=== PATIENT | male | born 1980 | race Caucasian/White ===

== ENCOUNTER 2019-01-16 15:17 | Inpatient (IN) | payer OTHER ==
[~2019-01-16] VITALS: Ht 175.3 cm; Wt 72.0 kg
[2019-01-16] MEDS ORDERED: ONDANSETRON 4 MG INJ IV STA (15:26)
[2019-01-16] MEDS ORDERED: SOD CHLORIDE 0.9% 1,000 ML IV STA (15:26)
[2019-01-16] MEDS ORDERED: HYDROmorphONE 1 MG/ML SYG IV STA (15:26)
[2019-01-16] MEDS: DIPHTH/TET/ACEL PERTUSS (ADULT) 0.5 ML VIAL IM* ONE ×2 (15:49→15:54)
--- NOTE | 2019-01-16 15:54 | ERD ---
ER Documentation Chief Complaint Chief Complaint R. TOE PAIN S/P CRUSH INJ HPI 38-year-old man brought in by EMS from home after a 14 inch high 12 foot long wooden beam fell onto his right big toe when he tried to move it. Episode o ccurred about half an hour prior to arrival, after the being fell onto his toe he could not ambulate developed pain, swelling, bleeding immediately. There was no other injury or trauma, no LOC, patient states tetanus immunization performed 3 years ago. Patient transported here by EMS without further complications ROS All systems reviewed and are negative except as per history of present illness. Medications Home Meds No Active Prescriptions or Reported Meds Allergies Allergies: Coded Allergies: No Known Allergy (Unverified , 01/16/19) PMhx/Soc Medical and Surgical Hx: pt denies Medical Hx History of Surgery: Yes (ELBOW DEBRIDEMENT) Anesthesia Reaction: No Hx Neurological Disorder: No Hx Respiratory Disorders: No Hx Cardiac Disorders: No Hx Psychiatric Problems: No Hx Miscellaneous Medical Probl: No Hx Alcohol Use: No Hx Substance Use: No Hx Tobacco Use: No Smoking Status: Never smoker FmHx Family History: No diabetes Physical Exam Vitals Vital Signs Date Temp Pulse Resp B/P (MAP) Pulse Ox O2 O2 Flow FiO2 Time Delivery Rate 01/16/19 99.0 72 16 122/78 100 15:22 (93) Physical Exam GENERAL: Well-developed, well-nourished, moderate discomfort, afebrile HEENT: Moist mucous membranes, pink conjunctiva, no cervical spine tenderness or step-off deformities, no goiter, no jaundice or icterus, extraocular movements intact without pain. No submandibular induration, and no pharyngeal erythema NEURO: Alert and oriented 3, cranial nerves II through XII intact bilaterally, pupils equal round reactive to light, no focal deficits or facial asymmetry, sensation intact distally Strength 5/5 in upper and lower extremities bilaterally CARDIAC: Regular rate and rhythm, no murmurs rubs or gallops LUNGS: Clear bilaterally no wheezing crackles or stridor ABDOMEN: Soft nontender, no guarding, no rigidity, no rebound, no psoas sign no obturator sign. Normoactive bowel sounds SKIN: Warm and dry to touch, crush injury to the right big toe with complex toe laceration and large contusion hematoma. EXTREMITIES: No clubbing cyanosis or edema, calves are bilaterally symmetrical, no Homans sign, no popliteal cord sign. Distal pulses equal and bilateral. Crush injury to the right big toe with active bleeding and near complete toenail avulsion with subungual hematoma. Patient has no tenderness over the navicular bone or other parts of the foot or ankle PSYCH: Normal affect without agitation or irritability Result Diagram: 01/16/19 1542 01/16/19 1542 Results 24 hrs Laboratory Tests Test 01/16/19 15:42 White Blood Count 5.8 10^3/ul Red Blood Count 4.28 10^6/ul Hemoglobin 12.9 g/dl Hematocrit 39.0 % Mean Corpuscular Volume 91.1 fl Mean Corpuscular Hemoglobin 30.1 pg Mean Corpuscular Hemoglobin Concent 33.1 g/dl Red Cell Distribution Width 12.8 % Platelet Count 171 10^3/UL Mean Platelet Volume 10.5 fl Immature Granulocytes % 0.200 % Neutrophils % 56.2 % Lymphocytes % 29.7 % Monocytes % 10.5 % Eosinophils % 2.9 % Basophils % 0.5 % Nucleated Red Blood Cells % 0.0 /100WBC Immature Granulocytes # 0.010 10^3/ul Neutrophils # 3.3 10^3/ul Lymphocytes # 1.7 10^3/ul Monocytes # 0.6 10^3/ul Eosinophils # 0.2 10^3/ul Basophils # 0.0 10^3/ul Nucleated Red Blood Cells # 0.0 10^3/ul Sodium Level 142 mmol/L Potassium Level 3.1 mmol/L Chloride Level 114 mmol/L Carbon Dioxide Level 22 mmol/L Anion Gap 6 Blood Urea Nitrogen 13 mg/dl Creatinine 0.60 mg/dl Est Glomerular Filtrat Rate mL/min > 60 mL/min Glucose Level 80 mg/dl Calcium Level 7.7 mg/dl Current Medications Medications Dose Sig/Monique Start Time Status Last (Trade) Ordered Route PRN Stop Time Admin Dose Reason Admin Sodium 1,000 ml @ Q1H STAT 01/16/19 DC 01/16/19 Chloride 1,000 mls/hr IV 15:26 15:40 01/16/19 16:25 1 mg ONCE STAT 01/16/19 DC 01/16/19 Hydromorphone IV 15:26 15:40 HCl 01/16/19 15:28 (Dilaudid) Ondansetron 4 mg ONCE STAT 01/16/19 DC 01/16/19 HCl (Zofran IV 15:26 15:40 Inj) 01/16/19 15:28 Cefazolin 50 ml @ ONCE IVPB 01/16/19 DC 01/16/19 Sodium 100 mls/hr 16:00 15:49 01/16/19 16:29 Diphtheria/ 0.5 ml ONCE ONCE 01/16/19 DC Tetanus/Acell IM* 16:00 Pertussis 01/16/19 16:01 (Adacel) Vancomycin VANCOMYCIN PER 01/16/19 UNV HCl (Vanco PER PHARMACY PROTOCOL XX 16:30 Iv Per Pharmacy) Piperacillin 100 ml @ Q6 IVPB 01/16/19 Sod/ 200 mls/hr 18:00 Tazobactam Sod 1,000 ml @ Q10H IV 01/16/19 Dextrose/Sodi 100 mls/hr 16:25 um Chloride IV Flush 3 ml PER 01/16/19 (NS 3 ml) PROTOCOL IV 16:30 Ondansetron 4 mg Q6H PRN 01/16/19 HCl (Zofran IV 16:30 Inj) NAUSEA/VOMITI NG 650 mg Q6H PRN 01/16/19 Acetaminophen PO .PAIN 1-3 16:30 (Tylenol OR TEMP Tab) 1 tab Q6H PRN 01/16/19 Acetaminophen PO .PAIN 4-6 16:30 / Hydrocodone Bitart ([place] (5/325)) Morphine 2 mg Q4H PRN 01/16/19 Sulfate IV .PAIN 16:30 (morphine) 7-10 40 mg DAILY@06 01/17/19 DC Pantoprazole IV 06:00 (Protonix 01/17/19 06:00 Iv) Potassium 100 ml @ Q2H IVPB 01/16/19 Chloride 50 mls/hr 16:30 01/16/19 22:29 2 mg ONCE STAT 01/16/19 DC 01/16/19 Hydromorphone IV 16:31 16:48 HCl 01/16/19 16:32 (Dilaudid) Albuterol/ 3 ml ONCE STAT 01/16/19 UNV Ipratropium HHN 16:40 (Duoneb) 01/16/19 16:41 Albuterol/ 3 ml Q6HWA RESP 01/16/19 UNV Ipratropium THERAPY HHN 20:00 (Duoneb) Albuterol/ 3 ml Q2H RESP 01/16/19 UNV Ipratropium THERAPY PRN 17:00 (Duoneb) HHN shortness of breath Procedures/MDM IV line was established patient was placed on director of cardiac cath lab rhythm strip revealed a sinus rhythm at about 70 bpm with upright P and T waves. Patient was afebrile I administered 1 L normal saline IV, hydromorphone 2 mg IV, Zofran 4 mg IV, cefazolin 1 g IV EKG performed, read by me: 65 bpm, normal sinus rhythm, normal axis, no acute ST segment changes, narrow QRS complex, with good R-wave progression in precordial leads. Three-view x-ray of the right foot performed, read by me there is a displaced comminuted fracture of the right first distal phalanx, no other fracture dislocation noted. CBC and electrolytes were within normal limits, coagulation profile has been ordered results are pending I will follow-up. Right toe was inspected and irrigated by me copiously with normal saline, bleeding stopped and no foreign bodies or debris was noted. Toe was wrapped with sterile gauze for comfort and supportive measures pending surgery. Trauma critical Care: Time: 41 minutes, this was time separate from other billable procedures. Treatments/Evaluations: Close monitoring and treatment of unstable vital signs, cardiorespiratory, and neurologic status, while maintaining tight balance of fluid, respiratory, and cardiac interventions. Patient will be admitted to [facility] and admitting team contacted podiatry and patient will be kept n.p.o. until ORIF later this evening Departure Diagnosis: Primary Impression: Open fracture of distal phalanx of great toe Encounter type: initial encounter Fracture alignment: displaced Laterality: right Qualified Codes: S92.421B - Displaced fracture of distal phalanx of right great toe, initial encounter for open fracture Additional Impression: Traumatic avulsion of nail plate of toe Encounter type: initial encounter Qualified Codes: S91.209A - Unspecified open wound of unspecified toe(s) with damage to nail, initial encounter Condition: CARLINE Slade MD January 16, 2019 15:54
[2019-01-16] MEDS ORDERED: CEFAZOLIN 1 GM/50 ML (PMX) 50 ML IVPB SCH (16:00)
[2019-01-16] MEDS ORDERED: ACETAMINOPHEN 325 MG TAB PO PRN (16:30)
[2019-01-16] MEDS ORDERED: VANCOMYCIN IV PER PHARMACY XX SCH (16:30)
[2019-01-16] MEDS ORDERED: ONDANSETRON 4 MG INJ IV PRN (16:30)
[2019-01-16] MEDS ORDERED: HYDROCODONE/APAP (5/325) TAB PO PRN (16:30)
[2019-01-16] MEDS ORDERED: NACL 0.9% 3 ML SYG IV SCH (16:30)
[2019-01-16] MEDS ORDERED: HYDROmorphONE 2 MG/ML SYG IV STA (16:31)
[2019-01-16] MEDS ORDERED: ALBUTEROL/IPRATROPIUM (NEB) 3 ML AMP HHN STA (16:40)
--- NOTE | 2019-01-16 16:56 | HP ---
Date/Time of Note Date/Time of Note DATE: 01/16/19 TIME: 16:56 Assessment/Plan VTE Prophylaxis Pharmacological prophylaxis: other Lines/Catheters IV Catheter Type (from Nrsg): Saline Lock Assessment/Plan Hospital Course Patient is a male with no significant past medical history who presents to [facility] after he was moving some beams around his house and one dropped on his right toe. Patient currently states other than pain in his right toe he feels well with no other significant complaints. Patient has not seen a doctor in quite some time however does occasionally see a doctor and get routine blood work. Patient family history does not have any heart attack or CVA however his father does have diabetes mellitus. Patient has no allergies to medications and also does not take any medications. Patient occasionally smokes but is not a daily smoker and states he does not drink. Patient denies chest pain, shortness of breath, headache, nausea, vomiting, abdominal pain, leg pain except for right foot toe pain. Objective Physical exam General: Patient is laying in bed and answers questions appropriately Mentation: Patient is alert and oriented 4, Head: Normocephalic atraumatic Eyes: EOMI, pupils reactive to light Neck: Supple, nontender, midline Respiratory: left has very mild wheeze, right clear to auscultation Cardiovascular: regular rate, no obvious murmurs Gastrointestinal: non-tender to palpation, bowel sounds heard. Neurological: Moves all extremities spontaneously Skin: Right big toe, bloody, laceration Assessment and plan Open, markedly comminuted, displaced first distal third phalangeal fracture, fairly severe and large laceration -Broad-spectrum IV antibiotic, infectious disease, Dr. Hung has been consulted to help with postoperative antibiotic management for prevention of osteomyelitis for open fracture -Podiatry, Dr. Mcgraw/Gurwinder consulted, patient on schedule for surgery ton ight -Pain control -N.p.o. -chest x-ray, coag panel, EKG in preparation for surgery Light wheezing on auscultation -No shortness of breath whatsoever -Chest x-ray -DuoNeb's -Patient is occasional smoker Disposition -Patient n.p.o. for surgery tonight -IV fluid, pain control, ID recommendations appreciated post surgery, patient will likely need IV antibiotics for a few days after. Result Diagram: 01/16/19 1542 01/16/19 1542 Results 24hrs Laboratory Tests Test 01/16/19 15:42 White Blood Count 5.8 Red Blood Count 4.28 L Hemoglobin 12.9 L Hematocrit 39.0 L Mean Corpuscular Volume 91.1 Mean Corpuscular Hemoglobin 30.1 Mean Corpuscular Hemoglobin Concent 33.1 Red Cell Distribution Width 12.8 Platelet Count 171 Mean Platelet Volume 10.5 H Immature Granulocytes % 0.200 Neutrophils % 56.2 Lymphocytes % 29.7 Monocytes % 10.5 Eosinophils % 2.9 Basophils % 0.5 Nucleated Red Blood Cells % 0.0 Immature Granulocytes # 0.010 Neutrophils # 3.3 Lymphocytes # 1.7 Monocytes # 0.6 Eosinophils # 0.2 Basophils # 0.0 Nucleated Red Blood Cells # 0.0 Sodium Level 142 Potassium Level 3.1 L Chloride Level 114 H Carbon Dioxide Level 22 Anion Gap 6 Blood Urea Nitrogen 13 Creatinine 0.60 L Est Glomerular Filtrat Rate mL/min > 60 Glucose Level 80 Calcium Level 7.7 L HPI/ROS Admit Date/Time Admit Date/Time PMH/Family/Social Past Medical History Medications Current Medications Vancomycin HCl (Vanco Iv Per Pharmacy) VANCOMYCIN PER PHARMACY PER PROTOCOL XX ; Start 01/16/19 at 16:30; Status UNV Piperacillin Sod/ Tazobactam Sod 100 ml @ 200 mls/hr Q6 IVPB ; Start 01/16/19 at 18:00 Dextrose/Sodium Chloride 1,000 ml @ 100 mls/hr Q10H IV ; Start 01/16/19 at 16:25 IV Flush (NS 3 ml) 3 ml PER PROTOCOL IV ; Start 01/16/19 at 16:30 Ondansetron HCl (Zofran Inj) 4 mg Q6H PRN IV NAUSEA/VOMITING; Start 01/16/19 at 16:30 Acetaminophen (Tylenol Tab) 650 mg Q6H PRN PO .PAIN 1-3 OR TEMP; Start 01/16/19 at 16:30 Acetaminophen/ Hydrocodone Bitart ([place] (5/325)) 1 tab Q6H PRN PO .PAIN 4-6; Start 01/16/19 at 16:30 Morphine Sulfate (morphine) 2 mg Q4H PRN IV .PAIN 7-10; Start 01/16/19 at 16:30 Potassium Chloride 100 ml @ 50 mls/hr Q2H IVPB ; Start 01/16/19 at 16:30; Stop 01/16/19 at 22:29 Albuterol/ Ipratropium (Duoneb) 3 ml ONCE STAT HHN ; Start 01/16/19 at 16:40; Stop 01/16/19 at 16:41; Status UNV Albuterol/ Ipratropium (Duoneb) 3 ml Q6HWA RESP THERAPY HHN ; Start 01/16/19 at 20:00; Status UNV Albuterol/ Ipratropium (Duoneb) 3 ml Q2H RESP THERAPY PRN HHN shortness of breath; Start 01/16/19 at 17:00; Status UNV Famotidine (Pepcid Iv) 20 mg Q12H IV ; Start 01/16/19 at 17:00 Coded Allergies: No Known Allergy (Unverified , 01/16/19) Social History Smoking Status: Never smoker Exam/Review of Systems Vital Signs Vitals Vital Signs Date Temp Pulse Resp B/P (MAP) Pulse Ox O2 O2 Flow FiO2 Time Delivery Rate 01/16/19 99.0 72 16 122/78 100 15:22 (93) CARLINE CUNNINGHAM January 16, 2019 16:56
[2019-01-16] MEDS ORDERED: ALBUTEROL/IPRATROPIUM (NEB) 3 ML AMP HHN PRN (17:00)
[2019-01-16] MEDS: DEXTROSE 5%-0.45% NACL 1,000 ML IV SCH (17:00)
[2019-01-16] MEDS: POTASSIUM CHLORIDE 100 ML IVPB SCH ×2 (17:03→20:14)
[2019-01-16] MEDS: FAMOTIDINE 20 MG INJ IV SCH (17:39)
[2019-01-16] MEDS ORDERED: DIPHTH/TET/ACEL PERTUSS (ADULT) 0.5 ML VIAL IM* ONE (18:00)
[2019-01-16] MEDS ORDERED: CALCIUM GLUCONATE 10% 1 GM in DEXTROSE 5% 100 ML IVPB ONE (18:30)
[2019-01-16] MEDS: PIPER-TAZO 3.375 GM IV (PMX) 100 ML IVPB SCH (19:07)
[2019-01-16] MEDS: ALBUTEROL/IPRATROPIUM (NEB) 3 ML AMP HHN SCH (19:27)
[2019-01-16] MEDS ORDERED: VANCOMYCIN HCL 1.5 GM in SOD CHLORIDE 0.9% 250 ML IVPB ONE (20:00)
--- NOTE | 2019-01-16 22:08 | CONS ---
DATE OF ADMISSION: 01/16/2019 DATE OF CONSULTATION: 01/16/2019 REASON FOR CONSULTATION: Right foot pain. HISTORY OF PRESENT ILLNESS: This is a 38-year-old gentleman, who had an injury at home, dropping a heavy steel metal bar, which resulted in a compression impaction injury of the right great toe. Currently, wrapped and hemostasis achieved, but did have a significant amount of bleeding, currently stable. Also had a radiographs, which revealed a comminuted displaced first distal phalangeal fracture. The patient's pain is currently under control. PAST MEDICAL HISTORY: Illnesses: None. PAST SURGICAL HISTORY: Right arm incision and drainage. ALLERGIES: NONE. MEDICATIONS: Includes vancomycin and Zosyn. Tetanus prophylaxis. PHYSICAL EXAMINATION: VITAL SIGNS: Temperature is 99, pulse is 78, respiratory rate 20, blood pressure is 120/68, pulse ox is 99 on room air. GENERAL: The patient is alert, oriented, in no acute distress. HEAD: Normocephalic, atraumatic. Trachea is midline. EXTREMITIES: Right foot hallux with bloody dressing. No signs of active bleeding. There is a contusion laceration of the great toe. There are palpable pedal pulses. X-rays reveal markedly comminuted displaced first distal phalangeal fracture. Chest x-ray: No acute cardiopulmonary disease. LABORATORIES: CBC 5.8, hemoglobin 12.9, hematocrit 39, platelets 171. Sodium 142, potassium 3.1, chloride 114, BUN 13, creatinine 0.6, albumin is 3.4. ASSESSMENT: 1. Right foot hallux open fracture of distal phalanx. 2. Crush injury with soft tissue damage of undetermined severity. 3. History of tobacco use. PLAN: The patient seen in the emergency room. Recommend open lavage and removal of small osseous fragments. They are not amenable to internal fixation. Also, we will likely have an open wound, which will require wound care and will give further recommendations following operative exploration, debridement of devitalized tissue. We will further coordinate with the operating room. Reviewed the imaging studies with the patient and all questions were answered to his satisfaction. The patient was also seen with my partner and had explained the procedure recovery process in [facility]. Dictated By: JUAN CARLOS RICH/VIVEK Conf#: [id number] DID#: [id number] CC: CARLINE CUNNINGHAM MD;*EndCC* MTDD
[2019-01-16] MEDS: morphine 2 MG INJ IV PRN (22:27)
[2019-01-16 23:08] VITALS: Ht 175.3 cm; Wt 72.0 kg
[2019-01-16 23:09] VITALS: BP 120/65; PULSE 70; RESP 18
[2019-01-17] VITALS (20 sets, daily range): BP systolic 115–133; BP diastolic 64–92; PULSE 64–79; RESP 11–22
[2019-01-17] MEDS: POTASSIUM CHLORIDE 100 ML IVPB SCH (00:12)
[2019-01-17] MEDS: PIPER-TAZO 3.375 GM IV (PMX) 100 ML IVPB SCH ×4 (00:14→17:33)
[2019-01-17] MEDS: DEXTROSE 5%-0.45% NACL 1,000 ML IV SCH ×2 (02:20→05:38)
[2019-01-17] MEDS: VANCOMYCIN 1 GM 250 ML IVPB SCH ×2 (04:18→14:50)
[2019-01-17] MEDS: FAMOTIDINE 20 MG INJ IV SCH ×2 (04:39→17:33)
[2019-01-17] MEDS: morphine 2 MG INJ IV PRN ×3 (04:45→22:35)
[2019-01-17] MEDS ORDERED: PANTOPRAZOLE 40 MG INJ IV SCH (06:00)
[2019-01-17] MEDS ORDERED: CEFAZOLIN 1 GM INJ ONE (07:00)
[2019-01-17] MEDS ORDERED: SEVOFLURANE 15 MIN ONE ×2 (07:00)
[2019-01-17] MEDS: ALBUTEROL/IPRATROPIUM (NEB) 3 ML AMP HHN SCH ×3 (08:00→20:00)
--- NOTE | 2019-01-17 09:14 | PN ---
Date/Time of Note Date/Time of Note DATE: 01/17/19 TIME: 09:14 Assessment/Plan VTE Prophylaxis SCD applied (from Nsg): Yes Pharmacological prophylaxis: LMWH Lines/Catheters IV Catheter Type (from Nrsg): Peripheral IV Assessment/Plan Hospital Course SUBJECTIVE: Continues to have pain in the left foot. OBJECTIVE: Physical Exam General: Adequately build 38 year-old male lying in bed in no apparent distress. HEENT: Normocephalic, atraumatic. Eyes: Anicteric sclerae, conjunctivae clear. ENT: Nasal septum midline, oral mucosa moist. Neck supple, no JVD noticed. Respiratory: Bilaterally clear breath sounds. No use of accessory muscles of respiration. No adventitious breath sounds. Cardiovascular: S1, S2 heard. Regular rate and rhythm. Abdomen: Soft, nontender, and nondistended. Bowel sounds positive in all 4 quadrants. Genitourinary: Deferred. Extremities: No cyanosis, no clubbing, no edema. Left foot dressing. Neurologic: Cranial nerves II through XII grossly intact. The patient is awake, alert, and oriented. Skin: Normal skin turgor. No skin rashes. Labs & Vitals per chart ASSESSMENT & PLAN 38-year-old male with no significant past medical history who had injury to his right toe after he dropped a heavy steel metal bar with imaging showing markedly comminuted displaced first distal phalangeal fracture, who was admitted to inpatient setting for further treatment and evaluation. 1. Right foot hallux open fracture of the distal phalanx. -Status post tetanus immunoglobulin. -Continue antimicrobials. -Being followed by podiatry. -Continue local wound care. -Await surgical intervention. 2. Normocytic, normochromic anemia. -Etiology unclear. -Monitor H&H closely. 3. Nicotine use. -Cessation advised. 4. Fluids, electrolytes, and nutrition. -Regular diet. 5. DVT prophylaxis. -Subcutaneous Lovenox. 6. Plan. -Continue pain control. -Continue local wound care and antimicrobials. -Await further podiatry recommendations/interventions. The patient was seen in collaboration with Dr. Pedro. Result Diagram: 01/17/19 0448 01/17/19 0448 Results 24hrs Laboratory Tests Test 01/16/19 15:42 01/17/19 04:48 White Blood Count 5.8 4.8 Red Blood Count 4.28 L 3.71 L Hemoglobin 12.9 L 11.3 L Hematocrit 39.0 L 34.7 L Mean Corpuscular Volume 91.1 93.5 Mean Corpuscular Hemoglobin 30.1 30.5 Mean Corpuscular Hemoglobin Concent 33.1 32.6 Red Cell Distribution Width 12.8 12.9 Platelet Count 171 138 L Mean Platelet Volume 10.5 H 11.0 H Immature Granulocytes % 0.200 0.000 L Neutrophils % 56.2 49.2 Lymphocytes % 29.7 35.4 Monocytes % 10.5 11.9 H Eosinophils % 2.9 3.3 Basophils % 0.5 0.2 Nucleated Red Blood Cells % 0.0 0.0 Immature Granulocytes # 0.010 0.000 Neutrophils # 3.3 2.4 Lymphocytes # 1.7 1.7 Monocytes # 0.6 0.6 Eosinophils # 0.2 0.2 Basophils # 0.0 0.0 Nucleated Red Blood Cells # 0.0 0.0 Prothrombin Time 13.1 Prothrombin Time Ratio 1.0 INR International Normalized Ratio 0.98 Activated Partial Thromboplast Time 26.1 Thrombin Time 15.5 Sodium Level 142 141 Potassium Level 3.1 L 4.2 Chloride Level 114 H 112 H Carbon Dioxide Level 22 24 Anion Gap 6 5 Blood Urea Nitrogen 13 10 Creatinine 0.60 L 0.82 Est Glomerular Filtrat Rate mL/min > 60 > 60 Glucose Level 80 91 Calcium Level 7.7 L 9.0 Total Bilirubin 0.4 0.3 Direct Bilirubin 0.00 0.00 Indirect Bilirubin 0.4 0.3 Aspartate Amino Transf (AST/SGOT) 17 17 Alanine Aminotransferase (ALT/SGPT) 38 34 Alkaline Phosphatase 64 59 Total Protein 5.8 L 6.1 Albumin 3.4 3.4 Hemoglobin A1c 5.2 Magnesium Level 2.2 Globulin 2.70 Albumin/Globulin Ratio 1.25 Exam/Review of Systems Exam Vitals Vital Signs Date Temp Pulse Resp B/P (MAP) Pulse Ox O2 O2 Flow FiO2 Time Delivery Rate 01/17/19 17 118/74 96 02:01 (89) 01/16/19 98.0 70 Room Air 23:09 01/16/19 21 19:27 Intake and Output 01/16/19 01/16/19 01/17/19 1515:00 23:00 07:00 IntakeIntake Total 300 ml 2000 ml OutputOutput Total 500 ml BalanceBalance 300 ml 1500 ml Results Results 24hrs Laboratory Tests Test 01/16/19 15:42 01/17/19 04:48 White Blood Count 5.8 4.8 Red Blood Count 4.28 L 3.71 L Hemoglobin 12.9 L 11.3 L Hematocrit 39.0 L 34.7 L Mean Corpuscular Volume 91.1 93.5 Mean Corpuscular Hemoglobin 30.1 30.5 Mean Corpuscular Hemoglobin Concent 33.1 32.6 Red Cell Distribution Width 12.8 12.9 Platelet Count 171 138 L Mean Platelet Volume 10.5 H 11.0 H Immature Granulocytes % 0.200 0.000 L Neutrophils % 56.2 49.2 Lymphocytes % 29.7 35.4 Monocytes % 10.5 11.9 H Eosinophils % 2.9 3.3 Basophils % 0.5 0.2 Nucleated Red Blood Cells % 0.0 0.0 Immature Granulocytes # 0.010 0.000 Neutrophils # 3.3 2.4 Lymphocytes # 1.7 1.7 Monocytes # 0.6 0.6 Eosinophils # 0.2 0.2 Basophils # 0.0 0.0 Nucleated Red Blood Cells # 0.0 0.0 Prothrombin Time 13.1 Prothrombin Time Ratio 1.0 INR International Normalized Ratio 0.98 Activated Partial Thromboplast Time 26.1 Thrombin Time 15.5 Sodium Level 142 141 Potassium Level 3.1 L 4.2 Chloride Level 114 H 112 H Carbon Dioxide Level 22 24 Anion Gap 6 5 Blood Urea Nitrogen 13 10 Creatinine 0.60 L 0.82 Est Glomerular Filtrat Rate mL/min > 60 > 60 Glucose Level 80 91 Calcium Level 7.7 L 9.0 Total Bilirubin 0.4 0.3 Direct Bilirubin 0.00 0.00 Indirect Bilirubin 0.4 0.3 Aspartate Amino Transf (AST/SGOT) 17 17 Alanine Aminotransferase (ALT/SGPT) 38 34 Alkaline Phosphatase 64 59 Total Protein 5.8 L 6.1 Albumin 3.4 3.4 Hemoglobin A1c 5.2 Magnesium Level 2.2 Globulin 2.70 Albumin/Globulin Ratio 1.25 Medications Medication Current Medications Vancomycin HCl (Vanco Iv Per Pharmacy) VANCOMYCIN PER PHARMACY PER PROTOCOL XX ; Start 01/16/19 at 16:30 Piperacillin Sod/ Tazobactam Sod 100 ml @ 200 mls/hr Q6 IVPB Last administered on 01/17/19 05:38; Admin Dose 200 MLS/HR; Start 01/16/19 at 18:00 Dextrose/Sodium Chloride 1,000 ml @ 100 mls/hr Q10H IV Last administered on 01/17/19 05:38; Admin Dose 100 MLS/HR; Start 01/16/19 at 16:25 IV Flush (NS 3 ml) 3 ml PER PROTOCOL IV ; Start 01/16/19 at 16:30 Ondansetron HCl (Zofran Inj) 4 mg Q6H PRN IV NAUSEA/VOMITING; Start 01/16/19 at 16:30 Acetaminophen (Tylenol Tab) 650 mg Q6H PRN PO .PAIN 1-3 OR TEMP; Start 01/16/19 at 16:30 Acetaminophen/ Hydrocodone Bitart ([place] (5/325)) 1 tab Q6H PRN PO .PAIN 4-6; Start 01/16/19 at 16:30 Morphine Sulfate (morphine) 2 mg Q4H PRN IV .PAIN 7-10 Last administered on 01/17/19 08:51; Admin Dose 2 MG; Start 01/16/19 at 16:30 Albuterol/ Ipratropium (Duoneb) 3 ml Q6HWA RESP THERAPY HHN Last administered on 01/16/19 19:27; Admin Dose 3 ML; Start 01/16/19 at 20:00 Albuterol/ Ipratropium (Duoneb) 3 ml Q2H RESP THERAPY PRN HHN shortness of breath; Start 01/16/19 at 17:00 Famotidine (Pepcid Iv) 20 mg Q12H IV Last administered on 01/17/19 04:39; Admin Dose 20 MG; Start 01/16/19 at 17:00 Vancomycin HCl 250 ml @ 125 mls/hr Q8H IVPB Last administered on 01/17/19 04:18; Admin Dose 125 MLS/HR; Start 01/17/19 at 04:00 KIERA EUBANKS NP January 17, 2019 09:14
--- NOTE | 2019-01-17 11:40 | HPN ---
Date/Time of Note Date/Time of Note DATE: 01/17/19 TIME: 11:40 Interval H&P Admission Note Pt. seen H&P reviewed: No system changes HOLLY BENÍTEZ DPM January 17, 2019 11:40
[2019-01-17] MEDS ORDERED: LIDOCAINE 1% (MPF) 30 ML INJ ONE (12:38)
[2019-01-17] MEDS ORDERED: BUPIVACAINE 0.5% (SDV) 30 ML INJ ONE (12:38)
--- NOTE | 2019-01-17 13:14 | PREAC ---
Date/Time of Note Date/Time of Note DATE: 01/17/19 TIME: 13:13 Anesthesia Eval and Record Evaluation Time Pre-Procedure Interview DATE: 01/17/19 TIME: 13:13 Age 38 Sex male NPO: 8 hrs Preoperative diagnosis right great toe crush injury Planned procedure right foot debridement and exploration Past Medical History Past Medical History: None Surgery & Anesthesia Issues No known issue Meds Anticoagulation: No Beta Lina within 24 hr: No Reason Beta Lina not given: Pt. not on B-Lina No Active Prescriptions or Reported Meds Current Medications Vancomycin HCl (Vanco Iv Per Pharmacy) VANCOMYCIN PER PHARMACY PER PROTOCOL XX ; Start 01/16/19 at 16:30 Piperacillin Sod/ Tazobactam Sod 100 ml @ 200 mls/hr Q6 IVPB Last administered on 01/17/19at 11:54; Admin Dose 200 MLS/HR; Start 01/16/19 at 18:00 Dextrose/Sodium Chloride 1,000 ml @ 100 mls/hr Q10H IV Last administered on 01/17/19at 05:38; Admin Dose 100 MLS/HR; Start 01/16/19 at 16:25 IV Flush (NS 3 ml) 3 ml PER PROTOCOL IV ; Start 01/16/19 at 16:30 Ondansetron HCl (Zofran Inj) 4 mg Q6H PRN IV NAUSEA/VOMITING; Start 01/16/19 at 16:30 Acetaminophen (Tylenol Tab) 650 mg Q6H PRN PO .PAIN 1-3 OR TEMP; Start 01/16/19 at 16:30 Acetaminophen/ Hydrocodone Bitart ([place] (5/325)) 1 tab Q6H PRN PO .PAIN 4-6; Start 01/16/19 at 16:30 Morphine Sulfate (morphine) 2 mg Q4H PRN IV .PAIN 7-10 Last administered on 01/17/19at 08:51; Admin Dose 2 MG; Start 01/16/19 at 16:30 Albuterol/ Ipratropium (Duoneb) 3 ml Q6HWA RESP THERAPY HHN Last administered on 01/16/19at 19:27; Admin Dose 3 ML; Start 01/16/19 at 20:00 Albuterol/ Ipratropium (Duoneb) 3 ml Q2H RESP THERAPY PRN HHN shortness of breath; Start 01/16/19 at 17:00 Famotidine (Pepcid Iv) 20 mg Q12H IV Last administered on 01/17/19at 04:39; Admin Dose 20 MG; Start 01/16/19 at 17:00 Vancomycin HCl 250 ml @ 125 mls/hr Q8H IVPB Last administered on 01/17/19at 04:18; Admin Dose 125 MLS/HR; Start 01/17/19 at 04:00 Enoxaparin Sodium (Lovenox) 40 mg DAILY SC ; Start 01/18/19 at 09:00 Meds reviewed: Yes Allergies Coded Allergies: No Known Allergy (Unverified , 01/16/19) Allergies Reviewed: Yes Labs/Studies Labs Reviewed: Reviewed by anesthesiologist Result Diagram: 01/17/19 0448 01/17/19 0448 Laboratory Tests 01/17/19 04:48 test: N/A Pre-procedure Exam Last vitals Vital Signs Date Temp Pulse Resp B/P (MAP) Pulse Ox O2 O2 Flow FiO2 Time Delivery Rate 01/17/19 21 09:38 01/17/19 98.4 65 18 123/71 99 09:10 (88) 01/16/19 Room Air 23:09 Airway: Adequate mouth opening, Adequate thyromental dist Mallampati: Mallampati I Teeth: Normal Lung: Normal Heart: Normal ASA Physical Status ASA physical status: 1 Emergency: None Planned Anesthetic General/MAC: LMA Planned Pain Management Parenteral pain med Pre-operative Attestations Prior to commencing anesthesia and surgery, the patient was re-evaluated, there was verification of: *The patient's identity *The results of appropriate recent lab work and preoperative vital signs *The above evaluation not changing prior to induction *Anesthetic plan, risk benefits, alternative and complications discussed with patient/family; questions answered; patient/family understands, accepts and wishes to proceed. BRANDT NG January 17, 2019 13:14
[2019-01-17] MEDS ORDERED: POLYMYXIN/BACITRACIN 1L IRRIG ONE (13:38)
[2019-01-17] MEDS ORDERED: POLYMYXIN B 500000 UNIT INJ ONE (13:38)
[2019-01-17] MEDS ORDERED: GENTAMICIN 80 MG INJ ONE (14:08)
[2019-01-17] MEDS ORDERED: VANCOMYCIN 1 GM INJ ONE (14:08)
[2019-01-17] MEDS ORDERED: PROPOFOL 20 ML ONE (14:31)
[2019-01-17] MEDS ORDERED: LIDOCAINE 2% (SDV) 5 ML INJ ONE (14:31)
--- NOTE | 2019-01-17 14:39 | SIPON ---
Date/Time of Note Date/Time of Note DATE: 01/17/19 TIME: 14:35 Operative Report Preoperative Diagnosis Right foot hallux open fracture of distal phalanx Crush injury right foot History of tobacco use Postoperative Diagnosis Right foot hallux open fracture of distal phalanx Crush injury right foot History of tobacco use Operation/Procedure Performed Right foot excisional debridement Right foot exploration of open fracture site Surgeon see signature line certified first assistant none Anesthesia: general Estimated blood loss: 10 - 50 ml's Transfusion Required none Specimen right foot hallux toe nail Right foot hallux bone Right foot hallux wound culture Grafts/Implants Vancomycin powder Complications none HOLLY BENÍTEZ DPM January 17, 2019 14:38
--- NOTE | 2019-01-17 14:46 | PAC ---
Date/Time of Note Date/Time of Note DATE: 01/17/19 TIME: 14:45 Post-Anesthesia Notes Post-Anesthesia Note Last documented vital signs Vital Signs Date Temp Pulse Resp B/P (MAP) Pulse Ox O2 O2 Flow FiO2 Time Delivery Rate 21 01/17/19 98.4 65 18 123/71 99 1445 (88) 01/16/19 Room Air 23:09 Activity: WNL Respiratory function: WNL Cardiovascular function: WNL Mental status: Baseline Pain reasonably controlled: Yes Hydration appropriate: Yes Nausea/Vomiting absent: Yes BRANDT NG January 17, 2019 14:46
--- NOTE | 2019-01-17 14:47 | OPR ---
Date/Time of Note Date/Time of Note DATE: 01/17/19 TIME: 14:47 Operative Report Preoperative Diagnosis Right foot hallux open fracture of distal phalanx Crush injury right foot History of tobacco use Postoperative Diagnosis Right foot hallux open fracture of distal phalanx Crush injury right foot History of tobacco use Operation/Procedure Performed Right foot excisional debridement Right foot exploration of open fracture site Surgeon see signature line Human Resources Officer none Anesthesia Type: general Estimated Blood Loss: 10 - 50 ml's Transfusion none Specimen Right foot excisional debridement Right hallux total nail avulsion Right foot exploration of open fracture site Grafts/Implants none Complications none Indications 38 y/o M patient suffered an open fracture and crush injury to his right great toe and requires debridement and irrigation of the open fracture site. Patient amenable to procedure. Discussed with patient that there is a risk of amput ation of toe and there could be resultant gangrene and/or tissue to the great toe. No promises or guarantees were given. Procedure Description Patient was brought into the OR and placed in the supine position. The right lower extremity was scrubbed, prepped, and draped in the usual aseptic manner. A formal time out was conducted. Attention was directed to the right hallux. Local anesthesia was administered in a rivas block fashion. There was a laceration site appreciated to the lateral aspect to hallux which extended into the hallux nail bed. There was subungual hematoma appreciated and a total nail avulsion was performed. The laceration site was measured 3.5 x 2 x 1.0cm. There was bone fragments appreciated with hematoma formation and bleeding was appreciated. Excisional debridement was done of the open laceration site of skin/subQ/fascia/bone using a pickup/scissors. 7cm2 of area was debrided. Bone was sent for pathology. Copious irrigation was used for the open wound site and wound cultures were obtained. The wound was packed with vancomycin powder. 3-[address] was [address] to [address] retention sutures to the hallux site. Palpable pedal pulses were appreciated and there was a capillary refill time of less than 3-4 seconds with some ecchymosis noted to the distal aspect of the hallux. Patient was transferred to PACU with vital signs stable and neurovascular status intact. HOLLY BENÍTEZ DPM January 17, 2019 14:47
[2019-01-17] MEDS ORDERED: ONDANSETRON 4 MG INJ IV PRN (15:00)
[2019-01-17] MEDS ORDERED: FENTAnyl 50 MCG/ML VIAL IV PRN ×3 (15:00)
[2019-01-17] MEDS ORDERED: MIDAZOLAM 1 MG/ML 2 ML INJ IV PRN (15:00)
[2019-01-17] MEDS ORDERED: EPHEDrine 25 MG/5 ML SYG IV PRN (15:00)
[2019-01-17] MEDS ORDERED: ALBUTEROL 0.083% (NEB) 2.5 MG/3 ML AMP HHN PRN (15:00)
[2019-01-17] MEDS ORDERED: HYDROmorphONE 1 MG/5 ML IV SYRINGE IV PRN ×3 (15:00)
[2019-01-17] MEDS ORDERED: LABETALOL HCL 20MG INJ IV PRN (15:00)
[2019-01-17] MEDS ORDERED: MEPERIDINE 25 MG INJ IV PRN (15:00)
[2019-01-17] MEDS ORDERED: DIPHENHYDRAMINE 50 MG INJ IV PRN (15:00)
[2019-01-17] MEDS ORDERED: hydrALAzine 20 MG INJ IV PRN (15:00)
--- NOTE | 2019-01-17 18:43 | CONS ---
Assessment/Plan Assessment/Plan Hospital Course (Demo Recall) ID PRELIMINARY CONSULT NOTE CURRENT ABX: DAY #=>Vanco IV + Zosyn HPI 38-year-old male with no significant past medical history who had injury to his right toe after he dropped a heavy steel metal bar with imaging showing markedly comminuted displaced first distal phalangeal fracture, who was admitted to inpatient setting for further treatment and evaluation. Status post tetanus immunoglobulin in ED. 24H INTERVAL SUMMARY * c/o foot pain, Tmax over 24H 99.0, VSS * POD #0 => taken to OR today 01/17/19 Operation/Procedure Performed * Right foot excisional debridement * Right foot exploration of open fracture site * Specimen right foot hallux toe nail, Right foot hallux bone, Right foot hallux wound culture IMAGING * 01/17/19 MICRO/OTHER * (-)MRSA NARES * 01/13/19 BCX (-) PHYSICAL EXAMINATION: GENERAL: VSS, NAD, HEENT: AT, NC, NECK: WNL CHEST: Equal chest rise bilaterally without dyspnea on observation ABD: Soft, ND EXTREMITIES: Warm, dry == Right foot DSG intact SKIN: No rash, no diaphoresis ID ASSESSMENT 38 yo M admit with: 1. Crush injury right foot w/Right foot hallux open fracture of distal phalanx 2. Acute Right foot pain 3. History of tobacco use 4. Normocytic, normochromic anemia = mild ABX ALLERGIES: NKDA INVASIVES: PIV CURRENT ABX: DAY # =>Vanco IV + Zosyn ID RECOMMENDATIONS/PLAN: 1. Await tissue samples from intra-op procedure sent today 2. Continue current broad spectrum ABX coverage - Thank you - Report to Dr. Schofield called Consultation Date/Type/Reason Admit Date/Time January 16, 2019 at 16:26 Initial Consult Date Date/Time of Note DATE: 01/17/19 TIME: 18:43 Exam/Review of Systems Exam Vitals Vital Signs Date Temp Pulse Resp B/P (MAP) Pulse Ox O2 O2 Flow FiO2 Time Delivery Rate 01/17/19 98.4 16:56 01/17/19 79 20 128/77 98 Room Air 16:29 (94) 01/17/19 21 09:38 Intake and Output 01/16/19 01/16/19 01/17/19 1515:00 23:00 07:00 IntakeIntake Total 300 ml 2000 ml OutputOutput Total 500 ml BalanceBalance 300 ml 1500 ml Results Result Diagram: 01/17/19 0448 01/17/198 Results 24hrs Laboratory Tests Test 01/17/19 04:48 White Blood Count 4.8 Red Blood Count 3.71 L Hemoglobin 11.3 L Hematocrit 34.7 L Mean Corpuscular Volume 93.5 Mean Corpuscular Hemoglobin 30.5 Mean Corpuscular Hemoglobin Concent 32.6 Red Cell Distribution Width 12.9 Platelet Count 138 L Mean Platelet Volume 11.0 H Immature Granulocytes % 0.000 L Neutrophils % 49.2 Lymphocytes % 35.4 Monocytes % 11.9 H Eosinophils % 3.3 Basophils % 0.2 Nucleated Red Blood Cells % 0.0 Immature Granulocytes # 0.000 Neutrophils # 2.4 Lymphocytes # 1.7 Monocytes # 0.6 Eosinophils # 0.2 Basophils # 0.0 Nucleated Red Blood Cells # 0.0 Sodium Level 141 Potassium Level 4.2 Chloride Level 112 H Carbon Dioxide Level 24 Anion Gap 5 Blood Urea Nitrogen 10 Creatinine 0.82 Est Glomerular Filtrat Rate mL/min > 60 Glucose Level 91 Hemoglobin A1c 5.2 Calcium Level 9.0 Magnesium Level 2.2 Total Bilirubin 0.3 Direct Bilirubin 0.00 Indirect Bilirubin 0.3 Aspartate Amino Transf (AST/SGOT) 17 Alanine Aminotransferase (ALT/SGPT) 34 Alkaline Phosphatase 59 Total Protein 6.1 Albumin 3.4 Globulin 2.70 Albumin/Globulin Ratio 1.25 Medications Medication Current Medications Vancomycin HCl (Vanco Iv Per Pharmacy) VANCOMYCIN PER PHARMACY PER PROTOCOL XX ; Start 01/16/19 at 16:30 Piperacillin Sod/ Tazobactam Sod 100 ml @ 200 mls/hr Q6 IVPB Last administered on 01/17/19at 17:33; Admin Dose 200 MLS/HR; Start 01/16/19 at 18:00 Dextrose/Sodium Chloride 1,000 ml @ 100 mls/hr Q10H IV Last administered on 01/17/19at 05:38; Admin Dose 100 MLS/HR; Start 01/16/19 at 16:25 IV Flush (NS 3 ml) 3 ml PER PROTOCOL IV ; Start 01/16/19 at 16:30 Ondansetron HCl (Zofran Inj) 4 mg Q6H PRN IV NAUSEA/VOMITING; Start 01/16/19 at 16:30 Acetaminophen (Tylenol Tab) 650 mg Q6H PRN PO .PAIN 1-3 OR TEMP Last administered on 01/17/19at 15:24; Admin Dose 650 MG; Start 01/16/19 at 16:30 Acetaminophen/ Hydrocodone Bitart ([place] (5/325)) 1 tab Q6H PRN PO .PAIN 4-6; Start 01/16/19 at 16:30 Morphine Sulfate (morphine) 2 mg Q4H PRN IV .PAIN 7-10 Last administered on 01/17/19at 08:51; Admin Dose 2 MG; Start 01/16/19 at 16:30 Albuterol/ Ipratropium (Duoneb) 3 ml Q6HWA RESP THERAPY HHN Last administered on 01/16/19at 19:27; Admin Dose 3 ML; Start 01/16/19 at 20:00 Albuterol/ Ipratropium (Duoneb) 3 ml Q2H RESP THERAPY PRN HHN shortness of breath; Start 01/16/19 at 17:00 Famotidine (Pepcid Iv) 20 mg Q12H IV Last administered on 01/17/19at 17:33; Admin Dose 20 MG; Start 01/16/19 at 17:00 Enoxaparin Sodium (Lovenox) 40 mg DAILY SC ; Start 01/18/19 at 09:00 Miscellaneous Information (*Rx Drug Level Order Reminder*) 1 2200 ONCE XX ; Start 01/17/19 at 22:00; Stop 01/17/19 at 22:01 Hydromorphone HCl (Dilaudid) 0.2 mg PACU PRN IV MILD PAIN 1-3; Start 01/17/19 at 15:00; Stop 01/17/19 at 21:00 Hydromorphone HCl (Dilaudid) 0.4 mg PACU PRN IV MOD PAIN 4-6; Start 01/17/19 at 15:00; Stop 01/17/19 at 21:00 Hydromorphone HCl (Dilaudid) 0.6 mg PACU PRN IV SEVERE PAIN 7-10; Start 01/17/19 at 15:00; Stop 01/17/19 at 21:00 Fentanyl (Sublimaze) 25 mcg PACU ORDER PRN IV MILD PAIN 1-3; Start 01/17/19 at 15:00; Stop 01/17/19 at 21:00 Fentanyl (Sublimaze) 50 mcg PACU ORDER PRN IV MOD PAIN 4-6; Start 01/17/19 at 15:00; Stop 01/17/19 at 21:00 Fentanyl (Sublimaze) 75 mcg PACU ORDER PRN IV SEVERE PAIN 7-10; Start 01/17/19 at 15:00; Stop 01/17/19 at 21:00 Ondansetron HCl (Zofran Inj) 4 mg PACU ORDER PRN IV NAUSEA/VOMITING; Start 01/17/19 at 15:00; Stop 01/17/19 at 21:00 Labetalol HCl (Labetalol) 5 mg PACU ORDER PRN IV HIGH BLOOD PRESSURE; Start 01/17/19 at 15:00; Stop 01/17/19 at 21:00 Hydralazine HCl (Apresoline) 5 mg PACU ORDER PRN IV HIGH BLOOD PRESSURE; Start 01/17/19 at 15:00; Stop 01/17/19 at 21:00 Ephedrine Sulfate 5 mg PACU ORDER PRN IV BLOOD PRESSURE SUPPORT; Start 01/17/19 at 15:00; Stop 01/17/19 at 21:00 Albuterol (Proventil 0.083% ([place])) 2.5 mg PACU ORDER PRN HHN .WHEEZING; Start 01/17/19 at 15:00; Stop 01/17/19 at 21:00 Meperidine HCl (Demerol) 25 mg PACU ORDER PRN IV .RIGORS; Start 01/17/19 at 15:00; Stop 01/17/19 at 21:00 Diphenhydramine HCl (Benadryl) 25 mg PACU ORDER PRN IV .PRURITUS; Start 01/17/19 at 15:00; Stop 01/17/19 at 21:00 Midazolam HCl (Versed) 0.5 mg PACU ORDER PRN IV .ANXIETY; Start 01/17/19 at 15:00; Stop 01/17/19 at 21:00 Vancomycin HCl 250 ml @ 125 mls/hr Q8H IVPB ; Start 01/17/19 at 23:00 GERMAN FREED NP January 17, 2019 18:43
[2019-01-17] MEDS ORDERED: VANCOMYCIN 1 GM 250 ML IVPB SCH (23:00)
[2019-01-18 00:13] VITALS: BP 125/60; PULSE 71; RESP 20
[2019-01-18] MEDS: DEXTROSE 5%-0.45% NACL 1,000 ML IV SCH (00:28)
[2019-01-18] MEDS: PIPER-TAZO 3.375 GM IV (PMX) 100 ML IVPB SCH ×5 (00:30→23:13)
[2019-01-18] MEDS ORDERED: HYDROCODONE/APAP (5/325) TAB PO PRN (01:00)
[2019-01-18] MEDS: morphine 4 MG/ML VIAL IV PRN ×3 (01:16→13:25)
[2019-01-18] MEDS: HYDROCODONE/APAP (5/325) TAB PO PRN ×4 (03:53→20:07)
[2019-01-18] MEDS: FAMOTIDINE 20 MG INJ IV SCH ×2 (05:40→17:46)
[2019-01-18] MEDS: VANCOMYCIN HCL 1.25 GM in SOD CHLORIDE 0.9% 250 ML IVPB SCH ×3 (06:38→23:01)
[2019-01-18 08:24] VITALS: BP 106/59; PULSE 59; RESP 16
[2019-01-18] MEDS: ENOXAPARIN 40 MG/0.4 ML SYG SC SCH (08:26)
[2019-01-18] MEDS: ALBUTEROL/IPRATROPIUM (NEB) 3 ML AMP HHN SCH (09:00)
--- NOTE | 2019-01-18 09:31 | PN ---
Date/Time of Note Date/Time of Note DATE: 01/18/19 TIME: 09:30 Assessment/Plan VTE Prophylaxis Risk score (from Ns)>0 risk: 13 SCD applied (from Nsg): Yes Pharmacological prophylaxis: LMWH Lines/Catheters IV Catheter Type (from Nrs): Saline Lock Assessment/Plan Hospital Course SUBJECTIVE: Continues to have pain in the left foot. OBJECTIVE: Physical Exam General: Adequately build 38 year-old male lying in bed in no apparent distress. HEENT: Normocephalic, atraumatic. Eyes: Anicteric sclerae, conjunctivae clear. ENT: Nasal septum midline, oral mucosa moist. Neck supple, no JVD noticed. Respiratory: Bilaterally clear breath sounds. No use of accessory muscles of respiration. No adventitious breath sounds. Cardiovascular: S1, S2 heard. Regular rate and rhythm. Abdomen: Soft, nontender, and nondistended. Bowel sounds positive in all 4 quadrants. Genitourinary: Deferred. Extremities: No cyanosis, no clubbing, no edema. Left foot dressing. Neurologic: Cranial nerves II through XII grossly intact. The patient is awake, alert, and oriented. Skin: Normal skin turgor. No skin rashes. Labs & Vitals per chart ASSESSMENT & PLAN 38-year-old male with no significant past medical history who had injury to his right toe after he dropped a heavy steel metal bar with imaging showing markedly comminuted displaced first distal phalangeal fracture, who was admitted to inpatient setting for further treatment and evaluation. 1. Right foot hallux open fracture of the distal phalanx. -Status post tetanus immunoglobulin. -Continue antimicrobials. -Being followed by podiatry. -Status post right foot excisional debridement and exploration of open fracture site on 01/17/2019. -Continue local wound care. 2. Normocytic, normochromic anemia. -Etiology unclear. -Monitor H&H closely. 3. Nicotine use. -Cessation advised. 4. Fluids, electrolytes, and nutrition. -Regular diet. 5. DVT prophylaxis. -Subcutaneous Lovenox. 6. Plan. -Continue pain control. -Continue local wound care and antimicrobials. -Await further podiatry recommendations. The patient was seen in collaboration with Dr. Pedro. Result Diagram: 01/18/19 0451 01/18/19 0451 Results 24hrs Laboratory Tests Test 01/17/19 21:58 01/18/19 04:51 Vancomycin Level Trough 8.9 L White Blood Count 6.1 # Red Blood Count 3.98 L Hemoglobin 12.1 L Hematocrit 37.1 L Mean Corpuscular Volume 93.2 Mean Corpuscular Hemoglobin 30.4 Mean Corpuscular Hemoglobin Concent 32.6 Red Cell Distribution Width 12.8 Platelet Count 156 Mean Platelet Volume 11.3 H Immature Granulocytes % 0.300 Neutrophils % 56.0 Lymphocytes % 29.6 Monocytes % 10.9 Eosinophils % 2.9 Basophils % 0.3 Nucleated Red Blood Cells % 0.0 Immature Granulocytes # 0.020 Neutrophils # 3.4 Lymphocytes # 1.8 Monocytes # 0.7 Eosinophils # 0.2 Basophils # 0.0 Nucleated Red Blood Cells # 0.0 Sodium Level 141 Potassium Level 4.1 Chloride Level 107 Carbon Dioxide Level 27 Anion Gap 7 Blood Urea Nitrogen 15 Creatinine 0.94 Est Glomerular Filtrat Rate mL/min > 60 Glucose Level 95 Calcium Level 9.0 Phosphorus Level 4.6 Magnesium Level 2.2 Exam/Review of Systems Exam Vitals Vital Signs Date Temp Pulse Resp B/P (MAP) Pulse Ox O2 O2 Flow FiO2 Time Delivery Rate 01/18/19 98.0 59 16 106/59 98 08:24 (75) 01/18/19 Room Air 00:13 01/17/19 21 09:38 Intake and Output 01/17/19 01/17/19 01/18/19 1515:00 23:00 07:00 IntakeIntake Total 600 ml 970 ml 1220 ml OutputOutput Total 10 ml 800 ml 1580 ml BalanceBalance 590 ml 170 ml -360 ml Results Results 24hrs Laboratory Tests Test 01/17/19 21:58 01/18/19 04:51 Vancomycin Level Trough 8.9 L White Blood Count 6.1 # Red Blood Count 3.98 L Hemoglobin 12.1 L Hematocrit 37.1 L Mean Corpuscular Volume 93.2 Mean Corpuscular Hemoglobin 30.4 Mean Corpuscular Hemoglobin Concent 32.6 Red Cell Distribution Width 12.8 Platelet Count 156 Mean Platelet Volume 11.3 H Immature Granulocytes % 0.300 Neutrophils % 56.0 Lymphocytes % 29.6 Monocytes % 10.9 Eosinophils % 2.9 Basophils % 0.3 Nucleated Red Blood Cells % 0.0 Immature Granulocytes # 0.020 Neutrophils # 3.4 Lymphocytes # 1.8 Monocytes # 0.7 Eosinophils # 0.2 Basophils # 0.0 Nucleated Red Blood Cells # 0.0 Sodium Level 141 Potassium Level 4.1 Chloride Level 107 Carbon Dioxide Level 27 Anion Gap 7 Blood Urea Nitrogen 15 Creatinine 0.94 Est Glomerular Filtrat Rate mL/min > 60 Glucose Level 95 Calcium Level 9.0 Phosphorus Level 4.6 Magnesium Level 2.2 Medications Medication Current Medications Vancomycin HCl (Vanco Iv Per Pharmacy) VANCOMYCIN PER PHARMACY PER PROTOCOL XX ; Start 01/16/19 at 16:30 Piperacillin Sod/ Tazobactam Sod 100 ml @ 200 mls/hr Q6 IVPB Last administered on 01/18/19at 05:40; Admin Dose 200 MLS/HR; Start 01/16/19 at 18:00 Dextrose/Sodium Chloride 1,000 ml @ 100 mls/hr Q10H IV Last administered on 01/18/19at 00:28; Admin Dose 100 MLS/HR; Start 01/16/19 at 16:25 IV Flush (NS 3 ml) 3 ml PER PROTOCOL IV ; Start 01/16/19 at 16:30 Ondansetron HCl (Zofran Inj) 4 mg Q6H PRN IV NAUSEA/VOMITING; Start 01/16/19 at 16:30 Acetaminophen (Tylenol Tab) 650 mg Q6H PRN PO .PAIN 1-3 OR TEMP Last administered on 01/17/19at 15:24; Admin Dose 650 MG; Start 01/16/19 at 16:30 Albuterol/ Ipratropium (Duoneb) 3 ml Q6HWA RESP THERAPY HHN Last administered on 01/16/19at 19:27; Admin Dose 3 ML; Start 01/16/19 at 20:00 Albuterol/ Ipratropium (Duoneb) 3 ml Q2H RESP THERAPY PRN HHN shortness of barbara th; Start 01/16/19 at 17:00 Famotidine (Pepcid Iv) 20 mg Q12H IV Last administered on 01/18/19at 05:40; Admin Dose 20 MG; Start 01/16/19 at 17:00 Enoxaparin Sodium (Lovenox) 40 mg DAILY SC Last administered on 01/18/19at 08:26; Admin Dose 40 MG; Start 01/18/19 at 09:00 Vancomycin HCl 1.25 gm/Sodium Chloride 250 ml @ 83.333 mls/ hr Q8H IVPB Last administered on 01/18/19at 06:38; Admin Dose 83.333 MLS/HR; Start 01/18/19 at 07:00 Acetaminophen/ Hydrocodone Bitart ([place] (5/325)) 1 tab Q4H PRN PO PAIN LEVEL 1-5; Start 01/18/19 at 01:00 Morphine Sulfate (morphine) 4 mg Q4H PRN IV .PAIN 7-10 Last administered on 01/18/19at 01:16; Admin Dose 4 MG; Start 01/18/19 at 01:00 Acetaminophen/ Hydrocodone Bitart ([place] (5/325)) 2 tab Q4H PRN PO PAIN LEVEL 6-10 Last administered on 01/18/19at 08:24; Admin Dose 2 TAB; Start 01/18/19 at 01:00 KIERA EUBANKS NP January 18, 2019 09:31
--- NOTE | 2019-01-18 11:45 | CONS ---
Assessment/Plan Assessment/Plan Hospital Course (Demo Recall) ID PRELIMINARY CONSULT NOTE CURRENT ABX: DAY #2.5 =>Vanco IV + Zosyn 01/18/191 01/18/19 0451 HPI/HOSPITAL COURSE 38-year-old male with no significant past medical history who had injury to his right toe after he dropped a heavy steel metal bar with imaging showing markedly comminuted displaced first distal phalangeal fracture, who was admitted to inpatient setting for further treatment and evaluation. Status post tetanus immunoglobulin in ED. * POD #1 => taken to OR 01/17/19 Operation/Procedure Performed * Right foot excisional debridement * Right foot exploration of open fracture site * Specimen right foot hallux toe nail, Right foot hallux bone, Right foot hallux wound culture 24H INTERVAL SUMMARY * A/A/O -- coping well with c/o foot pain, no fevers, VSS -Right foot dressing C/D/I. * IMAGING * 01/16/19 CXR: No acute cardiopulmonary disease. * 01/16/19 RIGHT FOOT XR: 1. Markedly comminuted, displaced first distal phalangeal fracture, could be intra-articular. 2. Great toe soft tissue swelling. MICRO/OTHER * (-)MRSA NARES * 01/13/19 BCX (-) PHYSICAL EXAMINATION: GENERAL: VSS, NAD, HEENT: AT, NC, NECK: WNL CHEST: Equal chest rise bilaterally without dyspnea on observation ABD: Soft, ND EXTREMITIES: Warm, dry == Right foot DSG intact SKIN: No rash, no diaphoresis ID ASSESSMENT 38 yo M admit with: 1. Crush injury right foot w/Right foot hallux open fracture of distal phalanx 2. Acute Right foot pain 3. History of tobacco use 4. Normocytic, normochromic anemia = mild ABX ALLERGIES: NKDA INVASIVES: PIV CURRENT ABX: DAY #2.5 =>Vanco IV + Zosyn ID RECOMMENDATIONS/PLAN: 1. Await PATHO report tissue samples reportedly sent from procedure 2. Continue current broad spectrum ABX coverage 3. Watch renal fx closely on this renally cleared ABX combo Consultation Date/Type/Reason Admit Date/Time January 16, 2019 at 16:26 Initial Consult Date Date/Time of Note DATE: 01/18/19 TIME: 11:40 Exam/Review of Systems Exam Vitals Vital Signs Date Temp Pulse Resp B/P (MAP) Pulse Ox O2 O2 Flow FiO2 Time Delivery Rate 01/18/19 21 09:00 01/18/19 98.0 59 16 106/59 98 08:24 (75) 01/18/19 Room Air 00:13 Intake and Output 01/17/19 01/17/19 01/18/19 1515:00 23:00 07:00 IntakeIntake Total 600 ml 970 ml 1220 ml OutputOutput Total 10 ml 800 ml 1580 ml BalanceBalance 590 ml 170 ml -360 ml Results Result Diagram: 01/18/19 0451 01/18/19 0451 Results 24hrs Laboratory Tests Test 01/17/19 21:58 01/18/19 04:48 01/18/19 04:51 Vancomycin Level Trough 8.9 L Iron Level 63 Total Iron Binding Capacity 234 L Percent Iron Saturation 27 White Blood Count 6.1 # Red Blood Count 3.98 L Hemoglobin 12.1 L Hematocrit 37.1 L Mean Corpuscular Volume 93.2 Mean Corpuscular Hemoglobin 30.4 Mean Corpuscular Hemoglobin Concent 32.6 Red Cell Distribution Width 12.8 Platelet Count 156 Mean Platelet Volume 11.3 H Immature Granulocytes % 0.300 Neutrophils % 56.0 Lymphocytes % 29.6 Monocytes % 10.9 Eosinophils % 2.9 Basophils % 0.3 Nucleated Red Blood Cells % 0.0 Immature Granulocytes # 0.020 Neutrophils # 3.4 Lymphocytes # 1.8 Monocytes # 0.7 Eosinophils # 0.2 Basophils # 0.0 Nucleated Red Blood Cells # 0.0 Sodium Level 141 Potassium Level 4.1 Chloride Level 107 Carbon Dioxide Level 27 Anion Gap 7 Blood Urea Nitrogen 15 Creatinine 0.94 Est Glomerular Filtrat Rate mL/min > 60 Glucose Level 95 Calcium Level 9.0 Phosphorus Level 4.6 Magnesium Level 2.2 Medications Medication Current Medications Vancomycin HCl (Vanco Iv Per Pharmacy) VANCOMYCIN PER PHARMACY PER PROTOCOL XX ; Start 01/16/19 at 16:30 Piperacillin Sod/ Tazobactam Sod 100 ml @ 200 mls/hr Q6 IVPB Last administered on 01/18/19at 05:40; Admin Dose 200 MLS/HR; Start 01/16/19 at 18:00 IV Flush (NS 3 ml) 3 ml PER PROTOCOL IV ; Start 01/16/19 at 16:30 Ondansetron HCl (Zofran Inj) 4 mg Q6H PRN IV NAUSEA/VOMITING; Start 01/16/19 at 16:30 Acetaminophen (Tylenol Tab) 650 mg Q6H PRN PO .PAIN 1-3 OR TEMP Last administered on 01/17/19at 15:24; Admin Dose 650 MG; Start 01/16/19 at 16:30 Albuterol/ Ipratropium (Duoneb) 3 ml Q2H RESP THERAPY PRN HHN shortness of breath; Start 01/16/19 at 17:00 Famotidine (Pepcid Iv) 20 mg Q12H IV Last administered on 01/18/19at 05:40; Admin Dose 20 MG; Start 01/16/19 at 17:00 Enoxaparin Sodium (Lovenox) 40 mg DAILY SC Last administered on 01/18/19at 08:26; Admin Dose 40 MG; Start 01/18/19 at 09:00 Vancomycin HCl 1.25 gm/Sodium Chloride 250 ml @ 83.333 mls/ hr Q8H IVPB Last administered on 01/18/19at 06:38; Admin Dose 83.333 MLS/HR; Start 01/18/19 at 07:00 Acetaminophen/ Hydrocodone Bitart ([place] (5/325)) 1 tab Q4H PRN PO PAIN LEVEL 1-5; Start 01/18/19 at 01:00 Morphine Sulfate (morphine) 4 mg Q4H PRN IV .PAIN 7-10 Last administered on 01/18/19at 01:16; Admin Dose 4 MG; Start 01/18/19 at 01:00 Acetaminophen/ Hydrocodone Bitart ([place] (5/325)) 2 tab Q4H PRN PO PAIN LEVEL 6-10 Last administered on 01/18/19 08:24; Admin Dose 2 TAB; Start 01/18/19 at 01:00 GERMAN FREED NP January 18, 2019 11:45
--- NOTE | 2019-01-18 13:40 | CONS ---
Assessment/Plan Assessment/Plan Assessment/Plan (Daily) Right foot hallux open fracture of distal phalanx Crush injury right foot History of tobacco use Plan Dressings were changed and to remain clean dry and intact. Non weight bearing to the right foot. Please dispense CAM boot and crutches. Patient would benefit from physical therapy. Keep right lower extremity elevated. Intraop cultures and pathology pending. Continue with abx per recommendations. If pathology negative for osteomyelitis likely be able to continue with PO abx for 7-10 days. Provided follow up information to the APC here at [facility]. Consultation Date/Type/Reason Admit Date/Time January 16, 2019 at 16:26 Initial Consult Date Date/Time of Note DATE: 01/18/19 TIME: 13:40 24 HR Interval Summary Free Text/Dictation No acute events overnight. Exam/Review of Systems Exam Vitals Vital Signs Date Temp Pulse Resp B/P (MAP) Pulse Ox O2 O2 Flow FiO2 Time Delivery Rate 01/18/19 21 09:00 01/18/19 98.0 59 16 106/59 98 08:24 (75) 01/18/19 Room Air 00:13 Intake and Output 01/17/19 01/17/19 01/18/19 1515:00 23:00 07:00 IntakeIntake Total 600 ml 970 ml 1220 ml OutputOutput Total 10 ml 800 ml 1580 ml BalanceBalance 590 ml 170 ml -360 ml Exam Ecchymosis noted to the distal and lateral aspect of the right hallux CFT less than 3 seconds to the distal hallux Sutures are in place and skin edges are well approximated. No gapping or wound dehiscence appreciated. Pain on palpation to the right hallux Pedal hairs present protective sensations intact. Results Result Diagram: 01/18/19 0451 01/18/19 0451 Results 24hrs Laboratory Tests Test 01/17/19 21:58 01/18/19 04:48 01/18/19 04:51 Vancomycin Level Trough 8.9 L Iron Level 63 Total Iron Binding Capacity 234 L Percent Iron Saturation 27 Ferritin 113.0 White Blood Count 6.1 # Red Blood Count 3.98 L Hemoglobin 12.1 L Hematocrit 37.1 L Mean Corpuscular Volume 93.2 Mean Corpuscular Hemoglobin 30.4 Mean Corpuscular Hemoglobin Concent 32.6 Red Cell Distribution Width 12.8 Platelet Count 156 Mean Platelet Volume 11.3 H Immature Granulocytes % 0.300 Neutrophils % 56.0 Lymphocytes % 29.6 Monocytes % 10.9 Eosinophils % 2.9 Basophils % 0.3 Nucleated Red Blood Cells % 0.0 Immature Granulocytes # 0.020 Neutrophils # 3.4 Lymphocytes # 1.8 Monocytes # 0.7 Eosinophils # 0.2 Basophils # 0.0 Nucleated Red Blood Cells # 0.0 Sodium Level 141 Potassium Level 4.1 Chloride Level 107 Carbon Dioxide Level 27 Anion Gap 7 Blood Urea Nitrogen 15 Creatinine 0.94 Est Glomerular Filtrat Rate mL/min > 60 Glucose Level 95 Calcium Level 9.0 Phosphorus Level 4.6 Magnesium Level 2.2 Medications Medication Current Medications Vancomycin HCl (Vanco Iv Per Pharmacy) VANCOMYCIN PER PHARMACY PER PROTOCOL XX ; Start 01/16/19 at 16:30 Piperacillin Sod/ Tazobactam Sod 100 ml @ 200 mls/hr Q6 IVPB Last administered on 01/18/19at 11:46; Admin Dose 200 MLS/HR; Start 01/16/19 at 18:00 IV Flush (NS 3 ml) 3 ml PER PROTOCOL IV ; Start 01/16/19 at 16:30 Ondansetron HCl (Zofran Inj) 4 mg Q6H PRN IV NAUSEA/VOMITING; Start 01/16/19 at 16:30 Acetaminophen (Tylenol Tab) 650 mg Q6H PRN PO .PAIN 1-3 OR TEMP Last a dministered on 01/17/19at 15:24; Admin Dose 650 MG; Start 01/16/19 at 16:30 Albuterol/ Ipratropium (Duoneb) 3 ml Q2H RESP THERAPY PRN HHN shortness of breath; Start 01/16/19 at 17:00 Famotidine (Pepcid Iv) 20 mg Q12H IV Last administered on 01/18/19at 05:40; Admin Dose 20 MG; Start 01/16/19 at 17:00 Enoxaparin Sodium (Lovenox) 40 mg DAILY SC Last administered on 01/18/19at 08:26; Admin Dose 40 MG; Start 01/18/19 at 09:00 Vancomycin HCl 1.25 gm/Sodium Chloride 250 ml @ 83.333 mls/ hr Q8H IVPB Last administered on 01/18/19at 06:38; Admin Dose 83.333 MLS/HR; Start 01/18/19 at 07:00 Acetaminophen/ Hydrocodone Bitart ([place] (5/325)) 1 tab Q4H PRN PO PAIN LEVEL 1-5; Start 01/18/19 at 01:00 Morphine Sulfate (morphine) 4 mg Q4H PRN IV .PAIN 7-10 Last administered on 01/18/19at 13:25; Admin Dose 4 MG; Start 01/18/19 at 01:00 Acetaminophen/ Hydrocodone Bitart ([place] (5/325)) 2 tab Q4H PRN PO PAIN LEVEL 6-10 Last administered on 01/18/19at 08:24; Admin Dose 2 TAB; Start 01/18/19 at 01:00 HOLLY BENÍTEZ DPM January 18, 2019 13:40
[2019-01-18 15:22] VITALS: BP 125/66; PULSE 67; RESP 16
--- NOTE | 2019-01-18 18:48 | CONS ---
DATE OF ADMISSION: 01/16/2019 DATE OF CONSULTATION: 01/18/[address] Cristi Hung. HISTORY OF PRESENT ILLNESS: The patient is a 38-year-old [place] male who was admitted on 0 01/16/2019 with a chief complaint of having dropped a heavy metal beam on his right distal great toe r esulting in an open comminuted fracture involving mostly the distal phalanx of the great toe. On adm ission, his white count was initially 12,900. He was given wound cleaning, bandage and begun treatme nt with vancomycin and Zosyn for preventative. The patient was seen by Dr. Mcgraw for a surgi horacio consultation. The patient was taken to the operative theater and wound was cleaned, cultured and bandaged. The patient was discharged to the [facility] and was treated with a pain medication, antibiotic s and elevation of the right foot. The patient's history also includes that he is a tobacco user. PAST MEDICAL HISTORY: The patient has been in good health, has hypertension. ALLERGIES: NONE. MEDICATIONS: Include . PHYSICAL EXAMINATION GENERAL: Reveals the patient to be a well-developed, alert, cooperative, [place] male, lying in bed with the head of his bed elevated 30 degrees and his foot elevated 30 degrees, also. There is a lar ge bulky bandage around the right foot distal aspect. VITAL SIGNS: His temperature is 98.4, pulse 67, respirations 16, pulse oximetry is 98%. HEENT: The pupils are equal, round and react to light. No scleral icterus. NECK: Supple, no jugular venous distention. CHEST: Clear to auscultation. HEART: Regular. No gallop, murmur or rub. ABDOMEN: Soft, no palpable organs or masses. EXTREMITIES: Reveals a bulky bandage, which may not be removed because it is post-surgical. His joan t is elevated. He is able to move all of his extremities. INITIAL IMPRESSION: He is well pain-medicated and alert, and had go to the bathroom since he has com e in due to opiate oral pain medication. He is not complaining of this. So he has been gotten out o f bed. INITIAL IMPRESSION: Open comminuted fracture, right distal phalanx great toe, hypertension, tobacco use. RECOMMENDATIONS: Continue present antibiotics, which is Zosyn and vancomycin pending culture results . If the patient has a bony involvement, he will need four weeks of antibiotics via PICC line with a ntibiotic chosen based on the culture and sensitivity of the great toe if any results of that becomes positive. Also, recommend the patient abstain from tobacco use during this time as it will prolong healing and/or cause a bad result. Dictated By: Serafin SOUZA MD EC/NTS Conf#: [id number] DID#: [id number] CC: CARLINE CUNNINGHAM MD;*EndCC*
[2019-01-18 20:17] VITALS: BP 120/56; PULSE 60; RESP 18
[2019-01-18] MEDS: DOCUSATE SODIUM 100 MG CAP PO SCH (23:03)
[2019-01-19] MEDS: morphine 4 MG/ML VIAL IV PRN ×2 (00:02→08:44)
[2019-01-19] MEDS: VANCOMYCIN HCL 1.25 GM in SOD CHLORIDE 0.9% 250 ML IVPB SCH ×3 (00:04→22:18)
[2019-01-19 01:09] VITALS: BP 108/60; PULSE 56; RESP 16
[2019-01-19] MEDS: PIPER-TAZO 3.375 GM IV (PMX) 100 ML IVPB SCH ×3 (06:18→20:14)
[2019-01-19 07:22] VITALS: BP 111/58; PULSE 62; RESP 18
--- NOTE | 2019-01-19 08:21 | PN ---
Date/Time of Note Date/Time of Note DATE: 01/19/19 TIME: 08:21 Assessment/Plan VTE Prophylaxis Risk score (from Ns)>0 risk: 12 SCD applied (from Nsg): Yes Pharmacological prophylaxis: LMWH Lines/Catheters IV Catheter Type (from Nrs): Saline Lock Assessment/Plan Hospital Course SUBJECTIVE: Continues to have pain in the right foot. OBJECTIVE: Physical Exam General: Adequately build 38 year-old male lying in bed in no apparent distress. HEENT: Normocephalic, atraumatic. Eyes: Anicteric sclerae, conjunctivae clear. ENT: Nasal septum midline, oral mucosa moist. Neck supple, no JVD noticed. Respiratory: Bilaterally clear breath sounds. No use of accessory muscles of respiration. No adventitious breath sounds. Cardiovascular: S1, S2 heard. Regular rate and rhythm. Abdomen: Soft, nontender, and nondistended. Bowel sounds positive in all 4 quadrants. Genitourinary: Deferred. Extremities: No cyanosis, no clubbing, no edema. Right foot dressing. Neurologic: Cranial nerves II through XII grossly intact. The patient is awake, alert, and oriented. Skin: Normal skin turgor. No skin rashes. Labs & Vitals per chart ASSESSMENT & PLAN 38-year-old male with no significant past medical history who had injury to his right toe after he dropped a heavy steel metal bar with imaging showing markedly comminuted displaced first distal phalangeal fracture, who was admitted to inpatient setting for further treatment and evaluation. 1. Right foot hallux open fracture of the distal phalanx. -Status post tetanus immunoglobulin. -Continue antimicrobials. -Being followed by podiatry. -Status post right foot excisional debridement and exploration of open fracture site on 01/17/2019. -Continue local wound care. -Non-weightbearing of the 2. Normocytic, normochromic anemia. -Etiology unclear. -Monitor H&H closely. 3. Nicotine use. -Cessation advised. 4. Fluids, electrolytes, and nutrition. -Regular diet. 5. DVT prophylaxis. -Subcutaneous Lovenox. 6. Plan. -Continue pain control. -Continue local wound care and antimicrobials. -Non-weightbearing of the RLE. -Pending PT evaluation. The patient was seen in collaboration with Dr. Pedro. Result Diagram: 01/19/19 0638 01/18/19 0451 Results 24hrs Laboratory Tests Test 01/18/19 14:52 01/19/19 06:38 Erythrocyte Sedimentation Rate 10 C-Reactive Protein 1.6 H Procalcitonin 0.05 White Blood Count 4.9 Red Blood Count 3.91 L Hemoglobin 11.9 L Hematocrit 36.3 L Mean Corpuscular Volume 92.8 Mean Corpuscular Hemoglobin 30.4 Mean Corpuscular Hemoglobin Concent 32.8 Red Cell Distribution Width 12.4 Platelet Count 137 L Mean Platelet Volume 11.1 H Immature Granulocytes % 0.400 Neutrophils % 54.2 Lymphocytes % 29.1 Monocytes % 12.3 H Eosinophils % 3.8 Basophils % 0.2 Nucleated Red Blood Cells % 0.0 Immature Granulocytes # 0.020 Neutrophils # 2.7 Lymphocytes # 1.4 Monocytes # 0.6 Eosinophils # 0.2 Basophils # 0.0 Nucleated Red Blood Cells # 0.0 Exam/Review of Systems Exam Vitals Vital Signs Date Temp Pulse Resp B/P (MAP) Pulse Ox O2 O2 Flow FiO2 Time Delivery Rate 01/19/19 98.2 62 18 111/58 99 07:22 (75) 01/19/19 Room Air 01:09 01/18/19 21 09:00 Intake and Output 01/18/19 01/18/19 01/19/19 1515:00 23:00 07:00 IntakeIntake Total 350 ml 350 ml 850 ml OutputOutput Total 400 ml 600 ml BalanceBalance 350 ml -50 ml 250 ml Results Results 24hrs Laboratory Tests Test 01/18/19 14:52 01/19/19 06:38 Erythrocyte Sedimentation Rate 10 C-Reactive Protein 1.6 H Procalcitonin 0.05 White Blood Count 4.9 Red Blood Count 3.91 L Hemoglobin 11.9 L Hematocrit 36.3 L Mean Corpuscular Volume 92.8 Mean Corpuscular Hemoglobin 30.4 Mean Corpuscular Hemoglobin Concent 32.8 Red Cell Distribution Width 12.4 Platelet Count 137 L Mean Platelet Volume 11.1 H Immature Granulocytes % 0.400 Neutrophils % 54.2 Lymphocytes % 29.1 Monocytes % 12.3 H Eosinophils % 3.8 Basophils % 0.2 Nucleated Red Blood Cells % 0.0 Immature Granulocytes # 0.020 Neutrophils # 2.7 Lymphocytes # 1.4 Monocytes # 0.6 Eosinophils # 0.2 Basophils # 0.0 Nucleated Red Blood Cells # 0.0 Medications Medication Current Medications Vancomycin HCl (Vanco Iv Per Pharmacy) VANCOMYCIN PER PHARMACY PER PROTOCOL XX ; Start 01/16/19 at 16:30 Piperacillin Sod/ Tazobactam Sod 100 ml @ 200 mls/hr Q6 IVPB Last administered on 01/19/19at 06:18; Admin Dose 200 MLS/HR; Start 01/16/19 at 18:00 IV Flush (NS 3 ml) 3 ml PER PROTOCOL IV ; Start 01/16/19 at 16:30 Ondansetron HCl (Zofran Inj) 4 mg Q6H PRN IV NAUSEA/VOMITING; Start 01/16/19 at 16:30 Acetaminophen (Tylenol Tab) 650 mg Q6H PRN PO .PAIN 1-3 OR TEMP Last admi nistered on 01/17/19at 15:24; Admin Dose 650 MG; Start 01/16/19 at 16:30 Albuterol/ Ipratropium (Duoneb) 3 ml Q2H RESP THERAPY PRN HHN shortness of breath; Start 01/16/19 at 17:00 Enoxaparin Sodium (Lovenox) 40 mg DAILY SC Last administered on 01/18/19 08:26; Admin Dose 40 MG; Start 01/18/19 at 09:00 Vancomycin HCl 1.25 gm/Sodium Chloride 250 ml @ 83.333 mls/ hr Q8H IVPB Last administered on 01/19/19at 00:04; Admin Dose 83.333 MLS/HR; Start 01/18/19 at 07:00 Acetaminophen/ Hydrocodone Bitart ([place] (5/325)) 1 tab Q4H PRN PO PAIN LEVEL 1-5 Last administered on 01/18/19at 15:01; Admin Dose 1 TAB; Start 01/18/19 at 01:00 Morphine Sulfate (morphine) 4 mg Q4H PRN IV .PAIN 7-10 Last administered on 01/19/19at 00:02; Admin Dose 4 MG; Start 01/18/19 at 01:00 Acetaminophen/ Hydrocodone Bitart ([place] (5/325)) 2 tab Q4H PRN PO PAIN LEVEL 6-10 Last administered on 01/18/19at 20:07; Admin Dose 2 TAB; Start 01/18/19 at 01:00 Docusate Sodium (Colace) 100 mg TID PO Last administered on 01/18/19at 23:03; Admin Dose 100 MG; Start 01/18/19 at 21:00 Famotidine (Pepcid) 20 mg Q12 PO ; Start 01/19/19 at 09:00 KIERA EUBANKS NP January 19, 2019 08:21
[2019-01-19] MEDS: DOCUSATE SODIUM 100 MG CAP PO SCH ×3 (10:17→20:13)
[2019-01-19] MEDS: FAMOTIDINE 20 MG TAB PO SCH ×2 (10:17→20:13)
[2019-01-19] MEDS: ENOXAPARIN 40 MG/0.4 ML SYG SC SCH (10:19)
[2019-01-19] MEDS: HYDROCODONE/APAP (5/325) TAB PO PRN ×2 (11:08→20:13)
--- NOTE | 2019-01-19 14:44 | CONS ---
Assessment/Plan Assessment/Plan Hospital Course (Demo Recall) ID NOTE CURRENT ABX: DAY #3.5 =>Vanco IV + Zosyn 01/19/19 0638 01/19/19 0638 HPI/HOSPITAL COURSE 38-year-old male with no significant past medical history who had injury to his right toe after he dropped a heavy steel metal bar with imaging showing markedly comminuted displaced first distal phalangeal fracture, who was admitted to inpatient setting for further treatment and evaluation. Status post tetanus immunoglobulin in ED. * POD #2=> taken to OR 01/17/19 Operation/Procedure Performed * Right foot excisional debridement * Right foot exploration of open fracture site * Specimen right foot hallux toe nail, Right foot hallux bone, Right foot hallux wound culture 24H INTERVAL SUMMARY * Doing well -- no complaints, A/A/O -- coping well with c/o foot pain, no fevers, VSS -Right foot dressing C/D/I. IMAGING * 01/16/19 CXR: No acute cardiopulmonary disease. * 01/16/19 RIGHT FOOT XR: 1. Markedly comminuted, displaced first distal phalangeal fracture, could be intra-articular. 2. Great toe soft tissue swelling. MICRO/OTHER * 01/17/19 FOOT CX: FUNGAL CULTURE Preliminary MYCOLOGY CULTURES ARE HELD 4 TO 6 WEEKS. ANY SIGNIFICANT GROWTH WILL BE REPORTED WHEN DETECTED. INTERIM REPORTS ARE NOT ISSUED. PHYSICAL EXAMINATION: GENERAL: VSS, NAD, HEENT: AT, NC, NECK: WNL CHEST: Equal chest rise bilaterally without dyspnea on observation ABD: Soft, ND EXTREMITIES: Warm, dry == Right foot DSG intact SKIN: No rash, no diaphoresis ID ASSESSMENT 38 yo M admit with: 1. Crush injury right foot w/Right foot hallux open fracture of distal phalanx 2. Acute Right foot pain 3. History of tobacco use 4. Normocytic, normochromic anemia = mild ABX ALLERGIES: NKDA INVASIVES: PIV CURRENT ABX: DAY #3.5 =>Vanco IV + Zosyn ID RECOMMENDATIONS/PLAN: DR. SOUZA ID ATTENDING RECOMMENDIN. He will need four weeks of antibiotics via PICC line with antibiotic chosen based on the culture and sensitivity of the great toe if any results of that becomes positive. 2. Also, recommend the patient abstain from tobacco use during this time as it will prolong healing and/or cause a bad result. Consultation Date/Type/Reason Admit Date/Time January 16, 2019 at 16:26 Initial Consult Date Date/Time of Note DATE: 01/19/19 TIME: 14:40 Exam/Review of Systems Exam Vitals Vital Signs Date Temp Pulse Resp B/P (MAP) Pulse Ox O2 O2 Flow FiO2 Time Delivery Rate 01/19/19 98.2 62 18 111/58 99 07:22 (75) 01/19/19 Room Air 01:09 01/18/19 21 09:00 Intake and Output 01/18/19 01/18/19 01/19/19 1515:00 23:00 07:00 IntakeIntake Total 350 ml 350 ml 850 ml OutputOutput Total 400 ml 600 ml BalanceBalance 350 ml -50 ml 250 ml Results Result Diagram: 01/19/19 0638 01/19/19 0638 Results 24hrs Laboratory Tests Test 01/18/19 14:52 01/19/19 06:36 01/19/19 06:38 Erythrocyte Sedimentation Rate 10 15 C-Reactive Protein 1.6 H Procalcitonin 0.05 White Blood Count 4.9 Red Blood Count 3.91 L Hemoglobin 11.9 L Hematocrit 36.3 L Mean Corpuscular Volume 92.8 Mean Corpuscular Hemoglobin 30.4 Mean Corpuscular Hemoglobin Concent 32.8 Red Cell Distribution Width 12.4 Platelet Count 137 L Mean Platelet Volume 11.1 H Immature Granulocytes % 0.400 Neutrophils % 54.2 Lymphocytes % 29.1 Monocytes % 12.3 H Eosinophils % 3.8 Basophils % 0.2 Nucleated Red Blood Cells % 0.0 Immature Granulocytes # 0.020 Neutrophils # 2.7 Lymphocytes # 1.4 Monocytes # 0.6 Eosinophils # 0.2 Basophils # 0.0 Nucleated Red Blood Cells # 0.0 Sodium Level 139 Potassium Level 4.1 Chloride Level 106 Carbon Dioxide Level 27 Anion Gap 6 Blood Urea Nitrogen 19 Creatinine 0.84 Est Glomerular Filtrat Rate mL/min > 60 Glucose Level 95 Calcium Level 9.0 Phosphorus Level 4.2 Magnesium Level 2.1 Vancomycin Level Trough 15.9 Medications Medication Current Medications Vancomycin HCl (Vanco Iv Per Pharmacy) VANCOMYCIN PER PHARMACY PER PROTOCOL XX ; Start 01/16/19 at 16:30 IV Flush (NS 3 ml) 3 ml PER PROTOCOL IV ; Start 01/16/19 at 16:30 Ondansetron HCl (Zofran Inj) 4 mg Q6H PRN IV NAUSEA/VOMITING; Start 01/16/19 at 16:30 Acetaminophen (Tylenol Tab) 650 mg Q6H PRN PO .PAIN 1-3 OR TEMP Last administered on 01/17/19 15:24; Admin Dose 650 MG; Start 01/16/19 at 16:30 Albuterol/ Ipratropium (Duoneb) 3 ml Q2H RESP THERAPY PRN HHN shortness of breath; Start 01/16/19 at 17:00 Enoxaparin Sodium (Lovenox) 40 mg DAILY SC Last administered on 01/19/19 10:19; Admin Dose 40 MG; Start 01/18/19 at 09:00 Acetaminophen/ Hydrocodone Bitart ([place] (5/325)) 1 tab Q4H PRN PO PAIN LEVEL 1-5 Last administered on 01/18/19 15:01; Admin Dose 1 TAB; Start 01/18/19 at 01:00 Morphine Sulfate (morphine) 4 mg Q4H PRN IV .PAIN 7-10 Last administered on 01/19/19 08:44; Admin Dose 4 MG; Start 01/18/19 at 01:00 Acetaminophen/ Hydrocodone Bitart ([place] (5/325)) 2 tab Q4H PRN PO PAIN LEVEL 6-10 Last administered on 01/19/19 11:08; Admin Dose 2 TAB; Start 01/18/19 at 01:00 Docusate Sodium (Colace) 100 mg TID PO Last administered on 01/19/19 13:57; Admin Dose 100 MG; Start 01/18/19 at 21:00 Famotidine (Pepcid) 20 mg Q12 PO Last administered on 01/19/19 10:17; Admin Dose 20 MG; Start 01/19/19 at 09:00 Vancomycin HCl 1.25 gm/Sodium Chloride 250 ml @ 83.333 mls/ hr Q8H IVPB Last administered on 01/19/19 10:45; Admin Dose 83.333 MLS/HR; Start 01/19/19 at 11:00 Piperacillin Sod/ Tazobactam Sod 100 ml @ 200 mls/hr Q6H IVPB Last administered on 01/19/19 13:57; Admin Dose 200 MLS/HR; Start 01/19/19 at 14:00 GERMAN FREED NP January 19, 2019 14:44
[2019-01-19 19:10] VITALS: BP 124/59; PULSE 65; RESP 18
[2019-01-20] MEDS: morphine 4 MG/ML VIAL IV PRN (00:11)
[2019-01-20 01:31] VITALS: BP 100/51; PULSE 56; RESP 18
[2019-01-20] MEDS: PIPER-TAZO 3.375 GM IV (PMX) 100 ML IVPB SCH ×4 (02:40→20:52)
[2019-01-20] MEDS: VANCOMYCIN HCL 1.25 GM in SOD CHLORIDE 0.9% 250 ML IVPB SCH ×3 (03:43→20:40)
[2019-01-20 08:29] VITALS: BP 108/61; PULSE 60
[2019-01-20] MEDS: FAMOTIDINE 20 MG TAB PO SCH ×2 (08:31→20:40)
[2019-01-20] MEDS: DOCUSATE SODIUM 100 MG CAP PO SCH ×3 (08:31→20:40)
[2019-01-20] MEDS: HYDROCODONE/APAP (5/325) TAB PO PRN ×3 (08:32→23:20)
[2019-01-20] MEDS: ENOXAPARIN 40 MG/0.4 ML SYG SC SCH (08:33)
--- NOTE | 2019-01-20 12:51 | CONS ---
Assessment/Plan Assessment/Plan Assessment/Plan (Daily) Right foot hallux open fracture of distal phalanx Crush injury right foot History of tobacco use Plan Dressings were changed and to remain clean dry and intact. Non weight bearing to the right foot with CAM boot. Continue with physical therapy. Patient permitted to use a knee scooter upon discharge. Keep right lower extremity elevated. Intraop cultures and pathology pending. Continue with abx per recommendations. If pathology negative for osteomyelitis likely be able to continue with PO abx for 7-10 days. ESR, CRP, and procalcitonin negative and no leukocytosis appreciated. Patient stable from podiatry standpoint to be discharged. Provided follow up information to the APC here at [facility]. Consultation Date/Type/Reason Admit Date/Time January 16, 2019 at 16:26 Initial Consult Date Date/Time of Note DATE: 01/20/19 TIME: 12:51 24 HR Interval Summary Free Text/Dictation No acute events overnight. Exam/Review of Systems Exam Vitals Vital Signs Date Temp Pulse Resp B/P (MAP) Pulse Ox O2 O2 Flow FiO2 Time Delivery Rate 01/20/19 98.4 60 108/61 95 Room Air 08:29 (77) 01/20/19 18 01:31 01/18/19 21 09:00 Intake and Output 01/19/19 01/19/19 01/20/19 1515:00 23:00 07:00 IntakeIntake Total 350 ml 480 ml 1200 ml OutputOutput Total 1000 ml 200 ml 900 ml BalanceBalance -650 ml 280 ml 300 ml Exam Mild ecchymosis noted to the distal and lateral aspect of the right hallux CFT less than 3 seconds to the distal hallux Sutures are in place and skin edges are well approximated. No gapping or wound dehiscence appreciated. Pain on palpation to the right hallux Pedal hairs present protective sensations intact. Results Result Diagram: 01/20/19 0426 01/20/19 0426 Results 24hrs Laboratory Tests Test 01/20/19 04:26 White Blood Count 4.1 L Red Blood Count 4.10 L Hemoglobin 12.2 L Hematocrit 38.5 L Mean Corpuscular Volume 93.9 Mean Corpuscular Hemoglobin 29.8 Mean Corpuscular Hemoglobin Concent 31.7 L Red Cell Distribution Width 12.3 Platelet Count 154 Mean Platelet Volume 11.0 H Immature Granulocytes % 0.200 Neutrophils % 43.6 Lymphocytes % 35.6 Monocytes % 13.8 H Eosinophils % 6.1 Basophils % 0.7 Nucleated Red Blood Cells % 0.0 Immature Granulocytes # 0.010 Neutrophils # 1.8 Lymphocytes # 1.5 Monocytes # 0.6 Eosinophils # 0.3 Basophils # 0.0 Nucleated Red Blood Cells # 0.0 Sodium Level 140 Potassium Level 4.9 Chloride Level 105 Carbon Dioxide Level 31 Anion Gap 4 L Blood Urea Nitrogen 18 Creatinine 0.95 Est Glomerular Filtrat Rate mL/min > 60 Glucose Level 104 Calcium Level 9.3 Phosphorus Level 4.5 Magnesium Level 2.2 Medications Medication Current Medications Vancomycin HCl (Vanco Iv Per Pharmacy) VANCOMYCIN PER PHARMACY PER PROTOCOL XX ; Start 01/16/19 at 16:30 IV Flush (NS 3 ml) 3 ml PER PROTOCOL IV ; Start 01/16/19 at 16:30 Ondansetron HCl (Zofran Inj) 4 mg Q6H PRN IV NAUSEA/VOMITING; Start 01/16/19 at 16:30 Acetaminophen (Tylenol Tab) 650 mg Q6H PRN PO .PAIN 1-3 OR TEMP Last administered on 01/17/19at 15:24; Admin Dose 650 MG; Start 01/16/19 at 16:30 Albuterol/ Ipratropium (Duoneb) 3 ml Q2H RESP THERAPY PRN HHN shortness of breath; Start 01/16/19 at 17:00 Enoxaparin Sodium (Lovenox) 40 mg DAILY SC Last administered on 01/20/19at 08:33; Admin Dose 40 MG; Start 01/18/19 at 09:00 Acetaminophen/ Hydrocodone Bitart ([place] (5/325)) 1 tab Q4H PRN PO PAIN LEVEL 1-5 Last administered on 01/18/19at 15:01; Admin Dose 1 TAB; Start 01/18/19 at 01:00 Morphine Sulfate (morphine) 4 mg Q4H PRN IV .PAIN 7-10 Last administered on 01/20/19at 00:11; Admin Dose 4 MG; Start 01/18/19 at 01:00 Acetaminophen/ Hydrocodone Bitart ([place] (5/325)) 2 tab Q4H PRN PO PAIN LEVEL 6-10 Last administered on 01/20/19at 08:32; Admin Dose 2 TAB; Start 01/18/19 at 01:00 Docusate Sodium (Colace) 100 mg TID PO Last administered on 01/20/19 08:31; Admin Dose 100 MG; Start 01/18/19 at 21:00 Famotidine (Pepcid) 20 mg Q12 PO Last administered on 01/20/19 08:31; Admin Dose 20 MG; Start 01/19/19 at 09:00 Vancomycin HCl 1.25 gm/Sodium Chloride 250 ml @ 83.333 mls/ hr Q8H IVPB Last administered on 01/20/19 11:16; Admin Dose 83.333 MLS/HR; Start 01/19/19 at 11:00 Piperacillin Sod/ Tazobactam Sod 100 ml @ 200 mls/hr Q6H IVPB Last administ ered on 01/20/19 08:16; Admin Dose 200 MLS/HR; Start 01/19/19 at 14:00 HOLLY BENÍTEZ DPM January 20, 2019 12:51
--- NOTE | 2019-01-20 14:29 | CONS ---
Assessment/Plan Assessment/Plan Hospital Course (Demo Recall) Alert feels good denies pain no fevers Antimicrobials: Vancomycin, Zosyn Physical examination well-developed middle-aged [place] man who is alert in no distress. Head atraumatic normocephalic neck is supple chest rise symmetrical breath sounds clear. Heart: S1-S2 abdomen soft bowel sounds present extremities with right foot dressing intact Assessment: Right foot fracture of the hallux status post crush injury Plan: Patient had a surgical intervention and had been on IV antibiotics for 3 days per discussion with podiatry okay discharge on oral antibiotics once pathology available and if negative for osteomyelitis If patient has no osteomyelitis we will send him home on oral Bactrim and Keflex for 7 days Consultation Date/Type/Reason Admit Date/Time January 16, 2019 at 16:26 Initial Consult Date Type of Consult id Date/Time of Note DATE: 01/20/19 TIME: 14:28 Exam/Review of Systems Exam Vitals Vital Signs Date Temp Pulse Resp B/P (MAP) Pulse Ox O2 O2 Flow FiO2 Time Delivery Rate 01/20/19 98.4 60 108/61 95 Room Air 08:29 (77) 01/20/19 18 01:31 01/18/19 21 09:00 Intake and Output 01/19/19 01/19/19 01/20/19 1515:00 23:00 07:00 IntakeIntake Total 350 ml 480 ml 1200 ml OutputOutput Total 1000 ml 200 ml 900 ml BalanceBalance -650 ml 280 ml 300 ml Results Result Diagram: 01/20/19 0426 01/20/19 0426 Results 24hrs Laboratory Tests Test 01/20/19 04:26 White Blood Count 4.1 L Red Blood Count 4.10 L Hemoglobin 12.2 L Hematocrit 38.5 L Mean Corpuscular Volume 93.9 Mean Corpuscular Hemoglobin 29.8 Mean Corpuscular Hemoglobin Concent 31.7 L Red Cell Distribution Width 12.3 Platelet Count 154 Mean Platelet Volume 11.0 H Immature Granulocytes % 0.200 Neutrophils % 43.6 Lymphocytes % 35.6 Monocytes % 13.8 H Eosinophils % 6.1 Basophils % 0.7 Nucleated Red Blood Cells % 0.0 Immature Granulocytes # 0.010 Neutrophils # 1.8 Lymphocytes # 1.5 Monocytes # 0.6 Eosinophils # 0.3 Basophils # 0.0 Nucleated Red Blood Cells # 0.0 Sodium Level 140 Potassium Level 4.9 Chloride Level 105 Carbon Dioxide Level 31 Anion Gap 4 L Blood Urea Nitrogen 18 Creatinine 0.95 Est Glomerular Filtrat Rate mL/min > 60 Glucose Level 104 Calcium Level 9.3 Phosphorus Level 4.5 Magnesium Level 2.2 Medications Medication Current Medications Vancomycin HCl (Vanco Iv Per Pharmacy) VANCOMYCIN PER PHARMACY PER PROTOCOL XX ; Start 01/16/19 at 16:30 IV Flush (NS 3 ml) 3 ml PER PROTOCOL IV ; Start 01/16/19 at 16:30 Ondansetron HCl (Zofran Inj) 4 mg Q6H PRN IV NAUSEA/VOMITING; Start 01/16/19 at 16:30 Acetaminophen (Tylenol Tab) 650 mg Q6H PRN PO .PAIN 1-3 OR TEMP Last administered on 01/17/19 15:24; Admin Dose 650 MG; Start 01/16/19 at 16:30 Albuterol/ Ipratropium (Duoneb) 3 ml Q2H RESP THERAPY PRN HHN shortness of breath; Start 01/16/19 at 17:00 Enoxaparin Sodium (Lovenox) 40 mg DAILY SC Last administered on 01/20/19 08:33; Admin Dose 40 MG; Start 01/18/19 at 09:00 Acetaminophen/ Hydrocodone Bitart ([place] (5/325)) 1 tab Q4H PRN PO PAIN LEVEL 1-5 Last administered on 01/18/19 15:01; Admin Dose 1 TAB; Start 01/18/19 at 01:00 Morphine Sulfate (morphine) 4 mg Q4H PRN IV .PAIN 7-10 Last administered on 00:11; Admin Dose 4 MG; Start 01/18/19 at 01:00 Acetaminophen/ Hydrocodone Bitart ([place] (5/325)) 2 tab Q4H PRN PO PAIN LEVEL 6-10 Last administered on 01/20/19 08:32; Admin Dose 2 TAB; Start 01/18/19 at 01:00 Docusate Sodium (Colace) 100 mg TID PO Last administered on 01/20/19 13:44; A dmin Dose 100 MG; Start 01/18/19 at 21:00 Famotidine (Pepcid) 20 mg Q12 PO Last administered on 5/28/19at 08:31; Admin Dose 20 MG; Start 01/19/19 at 09:00 Vancomycin HCl 1.25 gm/Sodium Chloride 250 ml @ 83.333 mls/ hr Q8H IVPB Last administered on 01/20/19at 11:16; Admin Dose 83.333 MLS/HR; Start 01/19/19 at 11:00 Piperacillin Sod/ Tazobactam Sod 100 ml @ 200 mls/hr Q6H IVPB Last administered on 01/20/19at 13:45; Admin Dose 200 MLS/HR; Start 01/19/19 at 14:00 GERARDO COOLEY NP January 20, 2019 14:29
[2019-01-20 15:20] VITALS: BP 117/72; PULSE 66; RESP 18
--- NOTE | 2019-01-20 16:07 | PN ---
DATE: 01/20/2019 SUBJECTIVE: The patient is stable this morning, ambulating with a walker and physical therapy. Pain appears to be adequately. PHYSICAL EXAMINATION: VITAL SIGNS: Temperature 98, pulse is 60, blood pressure 108/61, O2 saturation 95% on room air. NECK: Supple. No JVD or lymphadenopathy. CARDIAC: S1, S2, no added sounds or murmurs. LUNGS: Clear to auscultation bilaterally. ABDOMEN: Soft, nontender. No guarding or rebound. EXTREMITIES: No cyanosis, clubbing, edema. NEUROLOGIC: Grossly intact. No focal deficits. LABORATORY DATA: Chemistry within normal limits. Procalcitonin is normal. ESR is within normal alexander its. The patient is pending biopsy results for osteomyelitis. IMPRESSION AND PLAN: Open fracture, right foot hallux, status post tetanus immunization, excision an d debridement and exploration of fracture site on 01/17/2019 pending biopsy results for osteomyelitis . Case was discussed with ID and podiatry if biopsy results are negative for osteomyelitis, the len ent can be discharged home on 7-10 days of p.o. antibiotics. In addition, the patient has a CAM boot and crutches in place and likely can be discharged once pathology results available. Dictated By: ERIK FORD MD SV/VIVEK Conf#: [id number] DID#: [id number] CC: CARLINE CUNNINGHAM MD;*EndCC*
[2019-01-20 20:18] VITALS: BP 104/51; PULSE 68; RESP 18
[2019-01-21] MEDS: PIPER-TAZO 3.375 GM IV (PMX) 100 ML IVPB SCH ×4 (01:36→20:04)
[2019-01-21 02:00] VITALS: BP 107/59; PULSE 59; RESP 18
[2019-01-21] MEDS: VANCOMYCIN HCL 1.25 GM in SOD CHLORIDE 0.9% 250 ML IVPB SCH ×3 (02:44→20:04)
[2019-01-21 07:30] VITALS: BP 111/59; PULSE 55; RESP 18
[2019-01-21] MEDS: FAMOTIDINE 20 MG TAB PO SCH ×2 (08:31→20:13)
[2019-01-21] MEDS: DOCUSATE SODIUM 100 MG CAP PO SCH ×3 (08:31→20:13)
[2019-01-21] MEDS: ENOXAPARIN 40 MG/0.4 ML SYG SC SCH (08:32)
[2019-01-21] MEDS: HYDROCODONE/APAP (5/325) TAB PO PRN ×3 (09:00→23:52)
[2019-01-21] MEDS: morphine 4 MG/ML VIAL IV PRN (10:21)
[2019-01-21] MEDS ORDERED: CEPH500C PO (10:38)
[2019-01-21] MEDS ORDERED: HYDR-4011 PO (10:38)
[2019-01-21] MEDS ORDERED: SULF1TAB31 PO (10:38)
--- NOTE | 2019-01-21 10:41 | PDOCDIS ---
Discharge Instructions DIAGNOSIS Discharge Diagnosis R foot crush injury CONDITION [id number] Patient Condition: Iolgv1j Good HOME CARE INSTRUCTIONS: [id number] Diet Instructions: Vgtsh7d Regular ACTIVITY: Sybrg5Uj Activity Restrictions: Dlgeq9m Slowly Increase Activity Rest between Activity Avoid heavy lifting Do not Drive Avoid Heavy Housework Keep Limb Elevated No Weight Bearing [id number] Bathing Restrictions: Rpknk7k Sponge Bath Enolh9Os Activity Restrictions Xriph7w DO NOT WET INCISION SITE/ USE Comment: CAM BOOT TO RLE FOLLOW UP/APPOINTMENTS Follow-up Plan 1. For pain, take zefb-[id number] acetaminophen or ibuprofen. 2. For severe pain, take Tulia as prescribed. Do not drink alcohol or drive after taking Tulia. 3. Tulia can cause severe constipation. Drink plenty of fluids and take xuov-hly-iiyhorq laxatives like Miralax if necessary. 4. Take antibiotics for 7 more days as prescribed. 5. See Dr. Purdy in clinic as scheduled. ADRIANNA CAM MD January 21, 2019 10:41
--- NOTE | 2019-01-21 12:05 | CONS ---
Assessment/Plan Assessment/Plan Assessment/Plan (Daily) Right foot hallux open fracture of distal phalanx Crush injury right foot History of tobacco use Plan Awaiting final pathology and culture results. Patient is amenable to wait another day to receive final results. Dressings to remain clean dry and intact. Non weight bearing to the right foot with CAM boot. Continue with physical therapy. Patient permitted to use a knee scooter upon discharge. Keep right lower extremity elevated. Continue with abx per recommendations. If pathology negative for osteomyelitis likely be able to continue with PO abx for 7-10 days. Patient stable from podiatry standpoint to be discharged. Provided follow up information to the APC here at [facility]. Consultation Date/Type/Reason Admit Date/Time January 16, 2019 at 16:26 Initial Consult Date Date/Time of Note DATE: 01/21/19 TIME: 12:04 24 HR Interval Summary Free Text/Dictation No acute events overnight. Exam/Review of Systems Exam Vitals Vital Signs Date Temp Pulse Resp B/P (MAP) Pulse Ox O2 O2 Flow FiO2 Time Delivery Rate 01/21/19 98.6 55 18 111/59 99 07:30 (76) 01/21/19 Room Air 02:00 01/18/19 21 09:00 Intake and Output 01/20/19 01/20/19 01/21/19 1515:00 23:00 07:00 IntakeIntake Total 1290 ml 580 ml 750 ml OutputOutput Total 900 ml 900 ml BalanceBalance 390 ml -320 ml 750 ml Exam Dressings clean dry and intact, no strikethrough, no proximal streaking. Results Result Diagram: 01/20/19 0426 01/20/19 0426 Medications Medication Current Medications Vancomycin HCl (Vanco Iv Per Pharmacy) VANCOMYCIN PER PHARMACY PER PROTOCOL XX ; Start 01/16/19 at 16:30 IV Flush (NS 3 ml) 3 ml PER PROTOCOL IV ; Start 01/16/19 at 16:30 Ondansetron HCl (Zofran Inj) 4 mg Q6H PRN IV NAUSEA/VOMITING; Start 01/16/19 at 16:30 Acetaminophen (Tylenol Tab) 650 mg Q6H PRN PO .PAIN 1-3 OR TEMP Last administered on 01/17/19at 15:24; Admin Dose 650 MG; Start 01/16/19 at 16:30 Albuterol/ Ipratropium (Duoneb) 3 ml Q2H RESP THERAPY PRN HHN shortness of breath; Start 01/16/19 at 17:00 Enoxaparin Sodium (Lovenox) 40 mg DAILY SC Last administered on 01/21/19 08:32; Admin Dose 40 MG; Start 01/18/19 at 09:00 Acetaminophen/ Hydrocodone Bitart ([place] (5/325)) 1 tab Q4H PRN PO PAIN LEVEL 1-5 Last administered on 01/18/19 15:01; Admin Dose 1 TAB; Start 01/18/19 at 01:00 Morphine Sulfate (morphine) 4 mg Q4H PRN IV .PAIN 7-10 Last administered on 01/21/19 10:21; Admin Dose 4 MG; Start 01/18/19 at 01:00 Acetaminophen/ Hydrocodone Bitart ([place] (5/325)) 2 tab Q4H PRN PO PAIN LEVEL 6-10 Last administered on 01/21/19 09:00; Admin Dose 2 TAB; Start 01/18/19 at 01:00 Docusate Sodium (Colace) 100 mg TID PO Last administered on 01/21/19 08:31; Admin Dose 100 MG; Start 01/18/19 at 21:00 Famotidine (Pepcid) 20 mg Q12 PO Last administered on 01/21/19 08:31; Admin Dose 20 MG; Start 01/19/19 at 09:00 Vancomycin HCl 1.25 gm/Sodium Chloride 250 ml @ 83.333 mls/ hr Q8H IVPB Last administered on 01/21/19 10:35; Admin Dose 83.333 MLS/HR; Start 01/19/19 at 11:00 Piperacillin Sod/ Tazobactam Sod 100 ml @ 200 mls/hr Q6H IVPB Last administered on 01/21/19 08:31; Admin Dose 200 MLS/HR; Start 01/19/19 at 14:00 HOLLY BENÍTEZ DPM January 21, 2019 12:05
--- NOTE | 2019-01-21 12:33 | CONS ---
Assessment/Plan Assessment/Plan Hospital Course (Demo Recall) No acute changes Antimicrobials: Vancomycin, Zosyn Physical examination well-developed middle-aged Arabic man who is alert in no distress. Head atraumatic normocephalic neck is supple chest rise symmetrical breath sounds clear. Heart: S1-S2 abdomen soft bowel sounds present extremities with right foot dressing intact Assessment: Right foot fracture of the hallux status post crush injury Plan: Remains stable, awaiting for pathology report, anticipate discharge on oral Bactrim and Keflex for 7 days if negative for osteomyelitis Consultation Date/Type/Reason Admit Date/Time January 16, 2019 at 16:26 Initial Consult Date Type of Consult id Date/Time of Note DATE: 01/21/19 TIME: 12:32 Exam/Review of Systems Exam Vitals Vital Signs Date Temp Pulse Resp B/P (MAP) Pulse Ox O2 O2 Flow FiO2 Time Delivery Rate 01/21/19 98.6 55 18 111/59 99 07:30 (76) 01/21/19 Room Air 02:00 01/18/19 21 09:00 Intake and Output 01/20/19 01/20/19 01/21/19 1515:00 23:00 07:00 IntakeIntake Total 1290 ml 580 ml 750 ml OutputOutput Total 900 ml 900 ml BalanceBalance 390 ml -320 ml 750 ml Results Result Diagram: 01/20/19 0426 01/20/19 0426 Medications Medication Current Medications Vancomycin HCl (Vanco Iv Per Pharmacy) VANCOMYCIN PER PHARMACY PER PROTOCOL XX ; Start 01/16/19 at 16:30 IV Flush (NS 3 ml) 3 ml PER PROTOCOL IV ; Start 01/16/19 at 16:30 Ondansetron HCl (Zofran Inj) 4 mg Q6H PRN IV NAUSEA/VOMITING; Start 01/16/19 at 16:30 Acetaminophen (Tylenol Tab) 650 mg Q6H PRN PO .PAIN 1-3 OR TEMP Last administered on 01/17/19at 15:24; Admin Dose 650 MG; Start 01/16/19 at 16:30 Albuterol/ Ipratropium (Duoneb) 3 ml Q2H RESP THERAPY PRN HHN shortness of breath; Start 01/16/19 at 17:00 Enoxaparin Sodium (Lovenox) 40 mg DAILY SC Last administered on 01/21/19at 08:32; Admin Dose 40 MG; Start 01/18/19 at 09:00 Acetaminophen/ Hydrocodone Bitart ([place] (5/325)) 1 tab Q4H PRN PO PAIN LEVEL 1-5 Last administered on 01/18/19 15:01; Admin Dose 1 TAB; Start 01/18/19 at 01:00 Morphine Sulfate (morphine) 4 mg Q4H PRN IV .PAIN 7-10 Last administered on 01/21/19 10:21; Admin Dose 4 MG; Start 01/18/19 at 01:00 Acetaminophen/ Hydrocodone Bitart ([place] (5/325)) 2 tab Q4H PRN PO PAIN LEVEL 6-10 Last administered on 01/21/19 09:00; Admin Dose 2 TAB; Start 01/18/19 at 01:00 Docusate Sodium (Colace) 100 mg TID PO Last administered on 01/21/19 08:31; Admin Dose 100 MG; Start 01/18/19 at 21:00 Famotidine (Pepcid) 20 mg Q12 PO Last administered on 01/21/19 08:31; Admin Dose 20 MG; Start 01/19/19 at 09:00 Vancomycin HCl 1.25 gm/Sodium Chloride 250 ml @ 83.333 mls/ hr Q8H IVPB Last administered on 01/21/19 10:35; Admin Dose 83.333 MLS/HR; Start 01/19/19 at 11:00 Piperacillin Sod/ Tazobactam Sod 100 ml @ 200 mls/hr Q6H IVPB Last administered on 01/21/19 08:31; Admin Dose 200 MLS/HR; Start 01/19/19 at 14:00 GERARDO COOLEY NP January 21, 2019 12:33
[2019-01-21 14:36] VITALS: BP 113/56; PULSE 65; RESP 18
--- NOTE | 2019-01-21 15:10 | PN ---
Date/Time of Note Date/Time of Note DATE: 01/21/19 TIME: 15:08 Assessment/Plan VTE Prophylaxis Risk score (from [facility])>0 risk: 8 SCD applied (from [facility]): Yes Pharmacological prophylaxis: NA/contraindicated Pharm contraindication: low risk/ambulating Lines/Catheters IV Catheter Type (from [facility]): Peripheral IV Urinary Cath still in place: No Assessment/Plan Assessment/Plan IMPRESSION AND PLAN: Open fracture, right foot hallux, status post tetanus immunization, excision and debridement and exploration of fracture site on 01/17/2019. Bacterial culture was sent by Dr. Purdy but cancelled either by the system or a lab nurse. Spoke to lab 01/21 and hopefully there will be preliminary results tomorrow. If biopsy results are negative for osteomyelitis, the patient can be discharged home on 7-10 days of p.o. antibiotics. In addition, the patient has a CAM boot and crutches in place. Result Diagram: 01/20/19 0426 01/20/19 0426 Subjective 24 Hr Interval Summary Free Text/Dictation Patient feeling well. Ambulating with PT. He was very upset to hear that the bacterial culture was not sent. Exam/Review of Systems Exam Vitals Vital Signs Date Temp Pulse Resp B/P (MAP) Pulse Ox O2 O2 Flow FiO2 Time Delivery Rate 01/21/19 98.7 65 18 113/56 100 14:36 (75) 01/21/19 Room Air 02:00 01/18/19 21 09:00 Intake and Output 01/20/19 01/20/19 01/21/19 1515:00 23:00 07:00 IntakeIntake Total 1290 ml 580 ml 750 ml OutputOutput Total 900 ml 900 ml BalanceBalance 390 ml -320 ml 750 ml Exam NECK: Supple. No JVD or lymphadenopathy. CARDIAC: S1, S2, no added sounds or murmurs. LUNGS: Clear to auscultation bilaterally. ABDOMEN: Soft, nontender. No guarding or rebound. EXTREMITIES: No cyanosis, clubbing, edema. NEUROLOGIC: Grossly intact. No focal deficits. Medications Medication Current Medications Vancomycin HCl (Vanco Iv Per Pharmacy) VANCOMYCIN PER PHARMACY PER PROTOCOL XX ; Start 01/16/19 at 16:30 IV Flush (NS 3 ml) 3 ml PER PROTOCOL IV ; Start 01/16/19 at 16:30 Ondansetron HCl (Zofran Inj) 4 mg Q6H PRN IV NAUSEA/VOMITING; Start 01/16/19 at 16:30 Acetaminophen (Tylenol Tab) 650 mg Q6H PRN PO .PAIN 1-3 OR TEMP Last administered on 01/17/19 15:24; Admin Dose 650 MG; Start 01/16/19 at 16:30 Albuterol/ Ipratropium (Duoneb) 3 ml Q2H RESP THERAPY PRN HHN shortness of breath; Start 01/16/19 at 17:00 Enoxaparin Sodium (Lovenox) 40 mg DAILY SC Last administered on 01/21/19 08:32; Admin Dose 40 MG; Start 01/18/19 at 09:00 Acetaminophen/ Hydrocodone Bitart ([place] (5/325)) 1 tab Q4H PRN PO PAIN LEVEL 1-5 Last administered on 01/18/19 15:01; Admin Dose 1 TAB; Start 01/18/19 at 01:00 Morphine Sulfate (morphine) 4 mg Q4H PRN IV .PAIN 7-10 Last administered on 01/21/19 10:21; Admin Dose 4 MG; Start 01/18/19 at 01:00 Acetaminophen/ Hydrocodone Bitart ([place] (5/325)) 2 tab Q4H PRN PO PAIN LEVEL 6-10 Last administered on 01/21/19 09:00; Admin Dose 2 TAB; Start 01/18/19 at 01:00 Docusate Sodium (Colace) 100 mg TID PO Last administered on 01/21/19 14:22; Admin Dose 100 MG; Start 01/18/19 at 21:00 Famotidine (Pepcid) 20 mg Q12 PO Last administered on 01/21/19 08:31; Admin Dose 20 MG; Start 01/19/19 at 09:00 Vancomycin HCl 1.25 gm/Sodium Chloride 250 ml @ 83.333 mls/ hr Q8H IVPB Last administered on 01/21/19 10:35; Admin Dose 83.333 MLS/HR; Start 01/19/19 at 11:00 Piperacillin Sod/ Tazobactam Sod 100 ml @ 200 mls/hr Q6H IVPB Last administered on 01/21/19 08:31; Admin Dose 200 MLS/HR; Start 01/19/19 at 14:00 Miscellaneous Information (*Rx Drug Level Order Reminder*) VANCO TROUGH @ 1,000 1000 ONCE XX ; Start 01/22/19 at 10:00; Stop 01/22/19 at 10:01 ADRIANNA CAM MD January 21, 2019 15:10
[2019-01-21 19:47] VITALS: BP 105/59; PULSE 68; RESP 16
[2019-01-22] MEDS: morphine 4 MG/ML VIAL IV PRN (01:14)
[2019-01-22 01:46] VITALS: BP 102/58; PULSE 70; RESP 18
[2019-01-22] MEDS: PIPER-TAZO 3.375 GM IV (PMX) 100 ML IVPB SCH ×2 (02:24→08:57)
[2019-01-22] MEDS: VANCOMYCIN HCL 1.25 GM in SOD CHLORIDE 0.9% 250 ML IVPB SCH ×2 (02:25→11:00)
[2019-01-22 08:00] VITALS: BP 110/60; PULSE 68; RESP 18
[2019-01-22] MEDS: FAMOTIDINE 20 MG TAB PO SCH (08:56)
[2019-01-22] MEDS: DOCUSATE SODIUM 100 MG CAP PO SCH (08:56)
[2019-01-22] MEDS: ENOXAPARIN 40 MG/0.4 ML SYG SC SCH (08:56)
[2019-01-22] MEDS: HYDROCODONE/APAP (5/325) TAB PO PRN (11:19)
--- NOTE | 2019-01-22 13:47 | CONS ---
Assessment/Plan Assessment/Plan Hospital Course (Demo Recall) 1100 No acute changes. Alert, feels good Antimicrobials: Vancomycin, Zosyn Physical examination well-developed middle-aged [place] man who is alert in no distress. Head atraumatic normocephalic neck is supple chest rise symmetrical breath sounds clear. Heart: S1-S2 abdomen soft bowel sounds present extremities with right foot dressing intact Assessment: Right foot fracture of the hallux status post crush injury===> no OM per patho, cx neg Plan: Remains stable, ok on oral Bactrim and Keflex for 7 days DW pt Consultation Date/Type/Reason Admit Date/Time January 16, 2019 at 16:26 Initial Consult Date Type of Consult id Date/Time of Note DATE: 01/22/19 TIME: 13:46 Exam/Review of Systems Exam Vitals Vital Signs Date Temp Pulse Resp B/P (MAP) Pulse Ox O2 O2 Flow FiO2 Time Delivery Rate 01/22/19 97.8 68 18 110/60 99 Room Air 08:00 (77) 01/18/19 21 09:00 Intake and Output 01/21/19 01/21/19 01/22/19 1515:00 23:00 07:00 IntakeIntake Total 350 ml 200 ml 600 ml OutputOutput Total 700 ml BalanceBalance 350 ml 200 ml -100 ml Results Result Diagram: 01/20/19 0426 01/20/19 0426 Results 24hrs Laboratory Tests Test 01/22/19 10:19 Vancomycin Level Trough 18.5 GERARDO COOLEY NP January 22, 2019 13:47
--- NOTE | 2019-01-22 18:17 | DS ---
Date/Time of Note Date/Time of Note DATE: 01/22/19 TIME: 18:14 Discharge Summary Admission/Discharge Info Admit Date/Time January 16, 2019 at 16:26 Discharge Date/Time January 22, 2019 at 12:36 Discharge Diagnosis R foot crush injury Patient Condition: Good Consults Dr. Purdy, podiatry Procedures 01/17: Right foot excisional debridement Right foot exploration of open fracture site Hx of Present Illness Patient is a male with no significant past medical history who presents to [facility] after he was moving some beams around his house and one dropped on his right toe. Patient currently states other than pain in his right toe he feels well with no other significant complaints. Patient has not seen a doctor in quite some time however does occasionally see a doctor and get routine blood work. Patient family history does not have any heart attack or CVA however his father does have diabetes mellitus. Patient has no allergies to medications and also does not take any medications. Patient occasionally smokes but is not a daily smoker and states he does not drink. Patient denies chest pain, shortness of breath, headache, nausea, vomiting, abdominal pain, leg pain except for right foot toe pain. Hospital Course The patient was taken for operative debridement on 01/[address] Purdy. Postoperative he was seen by PT and continued on empiric antibiotics. Hospital course prolonged due to failure of lab to process operative bacterial culture in a timely manner. It did result negative. Patient will be discharged on 7 day course of prophylactic antibiotics. He is ambulatory, heel weight bearing only on the affected foot. Home Meds Active Scripts Hydrocodone/Acetaminophen ([place] 5-325 Tablet) 1 Each Tablet, 1 EACH PO Q6 PRN for PAIN, #24 TAB Prov:ADRIANNA CAM MD 01/21/19 Cephalexin* (Cephalexin*) 500 Mg Capsule, 500 MG PO Q6, #28 CAP Prov:ADRIANNA CAM MD 01/21/19 Sulfamethoxazole/Trimethoprim* (Bactrim Ds* Tablet) 1 Each Tablet, 1 TAB PO BID, #14 TAB Prov:ADRIANNA CAM MD 01/21/19 Follow-up Plan 1. For pain, take [id number] acetaminophen or ibuprofen. 2. For severe pain, take [place] as prescribed. Do not drink alcohol or drive after taking [place]. 3. [place] can cause severe constipation. Drink plenty of fluids and take [id number] laxatives like Miralax if necessary. 4. Take antibiotics for 7 more days as prescribed. 5. See Dr. Purdy in clinic as scheduled. Primary Care Provider [facility]. Time spent on discharge: > 30 minutes Pending Labs Laboratory Tests Test 01/22/19 10:19 Vancomycin Level Trough 18.5 ug/ml (10.0-20.0) ADRIANNA CAM MD January 22, 2019 18:16
== END 2019-01-22 12:36 | disposition home or self-care (01) | DRG 517 ==
LOC: E/R 15:17 → MS1 16:26
PROVIDERS: ADMIT Internal Medicine; ATTEND Internal Medicine
PROC: 0QBQ0ZZ Excision of Right Toe Phalanx, Open Approach (ICD-10-PCS; principal; 2019-01-17 11:30)
DX: S92.421B Displaced fracture of distal phalanx of right great toe, initial encounter for open fracture (principal); Z72.0 Tobacco use; R06.2 Wheezing; D64.9 Anemia, unspecified; W23.0XXA Caught, crushed, jammed, or pinched between moving objects, initial encounter; Y92.009 Unspecified place in unspecified non-institutional (private) residence as the place of occurrence of the external cause; S91.201A Unspecified open wound of right great toe with damage to nail, initial encounter
CPT/HCPCS: 36415; 71045; 73630; 80048; 80053; 80076; 80202; 82728; 83036; 83540; 83735; 84100; 84145; 85025; 85049; 85610; 85651; 85670; 85730; 86140; 87070; 87075; 87102; 88304; 88311; 88312; 90715; 93005; 94640; 94664; 96374; 96375; 97116; 97161; 97530; J0610; J0690; J1170; J1580; J1650; J2270; J2405; J2543; J3010; J3370; J3480; J7030; J7042; J7050; L4386